=== PATIENT | female | born 1945 | race Caucasian/White ===

== ENCOUNTER 2018-04-27 09:55 | Day surgery (SDC) | payer OTHER, SELFPAY ==
--- NOTE | 2018-04-26 15:43 | W.PIPPEYE ---
History of Present Illness Chief Complaint: Progressive decreased vision, right eye Narrative: The patient is a 72-year old female with history of progressive decreased vision in both eyes, right eye worse than left. She notes significant difficulty with threading a needle, also when driving. On examination she was noted to have bilateral nuclear cortical and posterior subcapsular cataract with visual acuity of 20/80 right eye, 20/30 left eye. The option of cataract surgery was offered to the patient and she wished to proceed. NOTE: The Chief Complaint, HPI, Past Medical History, Past Surgical History, Family History, Social History, Medications, and complete Ophthalmic Exam with detailed Assessment and Plan have already been documented in the patient's outpatient ophthalmic record and are not covered again in detail here. PFSH Migraine with aura Polycystic kidney disease Polycystic liver disease RA (rheumatoid arthritis) Family History Mother Dementia Stroke Father Diabetes Essential hypertension Heart disease Sister Essential hypertension Heart disease Hyperlipidemia Neoplasm Grandfather No problems noted. Grandfather No problems noted. Grandmother No problems noted. Grandmother No problems noted. Sister Essential hypertension Son Essential hypertension Hyperlipidemia Daughter No problems noted. Abdominal hysterectomy Arthroplasty of knee (~09/2006) Biopsy of breast CYST ASPIRATION; LIVER (~06/2014) Cholecystectomy (08/12/14) Colonoscopy - MAC (05/01/16) LIVER RESECTION Oophrectomy, Both Repair, ACL Rotator Cuff Repair (~08/2008) Spinal Fusion Family History Mother Dementia Stroke Father Diabetes Essential hypertension Heart disease Sister Essential hypertension Heart disease Hyperlipidemia Neoplasm Grandfather No problems noted. Grandfather No problems noted. Grandmother No problems noted. Grandmother No problems noted. Sister Essential hypertension Son Essential hypertension Hyperlipidemia Daughter No problems noted. Medical History Migraine with aura Polycystic kidney disease Polycystic liver disease RA (rheumatoid arthritis) Social History Smoking/Tobacco Use Status: Never Surgical History Abdominal hysterectomy Arthroplasty of knee (~09/2006) Biopsy of breast CYST ASPIRATION; LIVER (~06/2014) Cholecystectomy (08/12/14) Colonoscopy - MAC (05/01/16) LIVER RESECTION Oophrectomy, Both Repair, ACL Rotator Cuff Repair (~08/2008) Spinal Fusion Social History Smoking/Tobacco Use Status: Never Meds Home Medications Medication Instructions Recorded Confirmed Type hydroxychloroquine [Plaquenil] 100 mg PO DAILY #90 tab-cap 10/29/12 04/22/18 History multivitamin 1 ea PO DAILY 10/29/12 04/22/18 History salsalate 500 mg PO DAILY 10/29/12 04/22/18 History cholecalciferol (vitamin D3) 1 tab PO DAILY 10/21/13 04/22/18 History [Vitamin D3] sumatriptan succinate [Imitrex] 100 mg PO STAT PRN #27 tab-cap 05/17/15 04/22/18 History ferrous sulfate [Feosol] 325 mg PO BID #60 cap 04/18/16 04/22/18 History adjuvant AS01B (PF), component 0.5 ml IM DAILY #0.5 ml 03/31/18 03/31/18 Rx vial 1 of 2 intramuscular suspension Allergies Allergy/AdvReac Type Severity Reaction Status Date / Time Sulfa (Sulfonamide Allergy Intermediate HIVES, Unverified 04/22/18 14:39 Antibiotics) nausea amoxicillin Allergy Mild SKIN RASH Unverified 04/22/18 14:39 erythromycin base Allergy Mild SKIN RASH Unverified 04/22/18 14:39 codeine AdvReac Severe itching, Unverified 04/22/18 14:39 nausea, hives celecoxib AdvReac Intermediate Nausea Unverified 04/22/18 14:39 fluorouracil [From Carac] AdvReac Intermediate Nausea Unverified 04/22/18 14:39 Penicillins AdvReac Intermediate skin rash, Unverified 04/22/18 14:39 itching Anti-E Allergy Severe Uncoded 04/22/18 14:39 Exam OCULAR EXAM:: Most recent ocular examination reveals corrected visual acuity of 20/80 right eye, 20/30 left eye. Intraocular pressure is 15 OD, 14 OS. Extraocular motility is normal. Pupils equal, round, and reactive without afferent pupillary defect Slit-lamp examination reveals 1+ hyperemia OU. Pupils dilate to 6 mm OU. 2+ nuclear/cortical with trace posterior subcapsular cataract is present OD. In the left eye there is a 1+ nuclear with 2+ cortical and trace posterior subcapsular cataract. Dilated funduscopic examination reveals disc cupping of 0.15 OD, 0.2 OS with good color. The retinal vasculature is normal. Mild pigmentary changes are present in both maculas. Peripheral retina and vitreous is normal OU. BRIGHTNESS ACUITY TESTING (BAT):: Brightness acuity testing of the right eye off is 20/80, low is 20/80, medium is 20/100, high is 20/400. Assessment and Plan (1) Posterior subcapsular age-related cataract, right eye: Current visit: No Status: Acute Assessment: Visually significant cataract, right eye. Plan: Cataract extraction with intraocular lens implantation, right eye (2) Nuclear sclerotic cataract of right eye: Current visit: No Status: Acute Assessment: Visually significant cataract, right eye. Plan: Cataract extraction with intraocular lens implantation, right eye (3) Cortical cataract of right eye: Current visit: No Status: Acute Assessment: Visually significant cataract, right eye. Plan: Cataract extraction with intraocular lens implantation, right eye Note: NOTE:: The details of the planned surgery, including the risks, indications,limitations,expectations,outcome and possible complications were explained to the patient. The patient understands the complications including, but not limited to: infection, hemorrhage, posterior dislocation of the lens or nuclear fragments which may require the intervention of a vitreoretinal surgeon, possible loss of the eye, or from anesthetic complications. The patient has been made aware of the option of not having surgery, that vision following surgery may not be equal to that prior to surgery, and that the planned surgery may not achieve the intended results. Following this discussion, which the patient appeared to understand, the patient wishes to proceed with cataract surgery with lens implantation of the affected eye to improve and maximize vision.
[2018-04-27 10:10] VITALS: BP 124/83; PULSE 72; RESP 16; TEMP 36.2; O2SAT 99
[2018-04-27] MEDS: Tropicam./Phenyleph. (1/2.5%) 5 ML BTL OD ×4 (10:22→11:34)
[2018-04-27] MEDS: Tetracaine 0.5% 4 ML BTL OD ×3 (10:22→10:32)
[2018-04-27] MEDS: Povidone-Iodine Ophth 30 ML BTL ×2 (11:28→11:56)
[2018-04-27] MEDS: Lidocaine 2% Jelly 6 ML SYR (11:34)
[2018-04-27] MEDS: Lidocaine 1% Pres-Free 5 ML VIAL (11:36)
[2018-04-27] MEDS: Balanced Salt Soln.-PLUS 500 ML BAG (11:38)
--- NOTE | 2018-04-27 12:06 | W.PM.DSUDISC ---
Discharge Plan Discharge Details Reason For Visit: CATARACT OD Attending Provider: Crispin Espana Primary Care Provider: Kenan Willett. Home Meds and New Rx's Prescriptions: No Action adjuvant AS01B (PF)vial 1 of 2 [Shingrix Adjuvant Component-PF] suspension 0.5 ml IM DAILY Qty: 0.5 RF: 1 salsalate 500 MG tablet 500 mg PO DAILY RF: 0 hydroxychloroquine [Plaquenil] 200 MG tablet 100 mg PO DAILY Qty: 90 RF: 4 multivitamin 1 EACH capsule 1 ea PO DAILY RF: 0 cholecalciferol (vitamin D3) [Vitamin D3] 2,000 UNIT capsule 1 tab PO DAILY RF: 0 sumatriptan succinate [Imitrex] 100 MG tablet 100 mg PO STAT PRNQty: 27 RF: 3 ferrous sulfate [Feosol] 325 MG tablet 325 mg PO BID Qty: 60 RF: 2 Discharge Instructions Stand Alone Forms: Post-op Topical Cataract, Shayy Greene (DSU) DS: Diagnosis Discharge Diagnosis (1) Posterior subcapsular age-related cataract, right eye: Status: Resolved (2) Nuclear sclerotic cataract of right eye: Status: Resolved (3) Cortical cataract of right eye: Status: Resolved (4) Status post cataract extraction and insertion of intraocular lens of right eye: Status: Chronic
--- NOTE | 2018-04-27 12:07 | W.PM.OP ---
Date of service: 04/27/18 Time of Service: 12:07 Operative Note DATE OF PROCEDURE: 04/27/18 PRE-OP DIAGNOSIS: Cataract, right eye POST-OP DIAGNOSIS: same SURGEON: Crispin Espana ANESTHESIA: MAC and local (sub-tenon's anesthetic infiltration) PATHOLOGY: none sent COMPLICATIONS: None Patient was transported to: same day Patient's condition: stable Implants: [place] [employer] [place] Vision / [employer] Tecnis [id number] Indications: Progressive decreased vision due to cataract, right eye Procedure Description: CATARACT SURGERY OPERATIVE REPORT PREOPERATIVE DIAGNOSIS: Nuclear/cortical/posterior subcapsular cataract, right eye POSTOPERATIVE DIAGNOSIS: Same OPERATION: Cataract extraction using phacoemulsification with posterior chamber intraocular lens implant, right eye. IOL: IOL [employer] Consultant/Model: J&J Vision / MEDINA Tecnis ZCB00 IOL Power: + 20.0 diopters IOL Serial Number: [id number] Optic Diameter: 6.0mm Haptic/Overall Diameter: 13.0mm PHACO INFO: Jesse Agilvaxon Vision System with OZil and Active Fluidics Cumulative Dispersed Energy (CDE): 7.76 seconds SURGEON: Crispin Espana MD, MISAEL ANESTHESIA: Monitored Anesthesia Care (MAC), with local sub-tenon's anesthetic infiltration COMPLICATIONS: None SPECIMENS: None INDICATIONS FOR PROCEDURE: The patient is a 72-year old lady with history of progressive decreased vision in her right eye. She is noted to have a significant nuclear cortical and posterior subcapsular cataract of the right eye with visual acuity of 20/80. The option of cataract surgery was offered to the patient and she wished to proceed. PROCEDURE: The correct surgical eye was identified and marked as the right eye and the pupil was dilated in the preoperative area using mydriatics and cycloplegics. The dilated pupil size was 7.0 mm. Oral sedation was administered in the form of an Imprimis MKO Melt (midazolam 3mg/ketamine 25mg/ondansetron 2mg). The patient was brought to the operating room where cardiopulmonary monitoring was instituted and surgical time-out was performed, confirming the correct operative eye and IOL power. Topical anesthesia was administered and ophthalmic povidone-iodine 5% was instilled into the conjunctival fornices. Lidocaine gel was applied to the cornea and the thaddeus-ocular area was prepped with Betadine 10% solution and draped in the usual sterile fashion for intraocular surgery, including an aperture drape. A Tegaderm transparent film dressing was cut in half and used to cover the lashes and lid margins. Care was taken to sequester the lashes and lid margins under the Tegaderm dressing. A lid speculum was placed between the lids of the operative eye and the Jamison-Kayy operating microscope was maneuvered into position. Adán scissors were then used to make a conjunctival buttonhole approximately 6mm posterior to the limbus in the inferonasal quadrant. Blunt dissection was carried out to expose bare sclera, and a blunt-tipped sub-tenon?s anesthesia cannula was introduced and passed posteriorly along the globe where non-preserved plain lidocaine was injected into posterior sub-Tenon?s space. A sideport knife was used to make a paracentesis port inferotemporaally, and the anterior chamber was filled with Healon GV. A 2.4mm keratome knife was used to create a half-thickness groove at the limbus and then to construct a three-plane near-clear corneal tunnel extending 2.0mm into clear cornea in the temporal/superiortemporal position. . A flap was raised on the anterior capsule and capsulorhexis forceps were used to complete a continuous curvilinear capsulorhexis of 5.5 mm. Balanced salt solution was then used to perform cortical cleaving hydrodissection and nuclear hydrodelineation until the lens could be freely rotated within the capsular bag. The lens nucleus was then disassembled and removed within the capsular bag and iris plane using phacoemulsification. Residual cortical material was removed using the 45-degree angled silicone I/A tip with 0.3mm port. The posterior capsule was carefully polished to remove as much residual lens epithelial cells as safely possible. The capsular bag was then inflated and the anterior chamber deepened with viscoelastic. The lens implant described above was inserted into the capsular bag using the MEDINA [place] Injector. A Kuglen hook was used to dial the IOL into position. Residual viscoelastic was then removed first from posterior to the IOL, then from the anterior chamber using the I/A handpiece. The lens implant was noted to center nicely within the capsular bag. The incisions were stromally hydrated, and the anterior chamber was reformed using BSS. Then 0.4cc of moxifloxacin 1.5mg/ml were injected into the capsular bag and anterior chamber. The incisions were checked with a Weck spear and found to be secure. Several drops of ophthalmic povidone-iodine 5% were then applied to the eye followed by two drops of Imprimis combination moxifloxacin/dexamethasone solution. The drapes were removed and a clear plastic protective eye shield was placed over the eye. The patient was then returned to Same Day Surgery in stable condition.
--- NOTE | 2018-04-27 12:10 | ROE_ITS ---
Date of service: 04/27/18 Time of Service: 12:07 Operative Note DATE OF PROCEDURE: 04/27/18 PRE-OP DIAGNOSIS: Cataract, right eye POST-OP DIAGNOSIS: same SURGEON: Crispin Espana ANESTHESIA: MAC and local (sub-tenon's anesthetic infiltration) PATHOLOGY: none sent COMPLICATIONS: None Patient was transported to: same day Patient's condition: stable Implants: [place] and [place] Vision / [employer] Tecnis [id number] Indications: Progressive decreased vision due to cataract, right eye Procedure Description: CATARACT SURGERY OPERATIVE REPORT PREOPERATIVE DIAGNOSIS: Nuclear/cortical/posterior subcapsular cataract, right eye POSTOPERATIVE DIAGNOSIS: Same OPERATION: Cataract extraction using phacoemulsification with posterior chamber intraocular lens implant, right eye. IOL: IOL [employer] Locomotive/Model: J&J Vision / MEDINA Tecnis ZCB00 IOL Power: + 20.0 diopters IOL Serial Number: [id number] Optic Diameter: 6.0mm Haptic/Overall Diameter: 13.0mm PHACO INFO: Jesse OptiMine Softwareon Vision System with OZil and Active Fluidics Cumulative Dispersed Energy (CDE): 7.76 seconds SURGEON: Crispin Espana MD, MISAEL ANESTHESIA: Monitored Anesthesia Care (MAC), with local sub-tenon's anesthetic infiltration COMPLICATIONS: None SPECIMENS: None INDICATIONS FOR PROCEDURE: The patient is a 72-year old lady with history of progressive decreased vision in her right eye. She is noted to have a significant nuclear cortical and posterior subcapsular cataract of the right eye with visual acuity of 20/80. The option of cataract surgery was offered to the patient and she wished to proceed. PROCEDURE: The correct surgical eye was identified and marked as the right eye and the pupil was dilated in the preoperative area using mydriatics and cycloplegics. The dilated pupil size was 7.0 mm. Oral sedation was administered in the form of an Imprimis MKO Melt (midazolam 3mg/ketamine 25mg/ ondansetron 2mg). The patient was brought to the operating room where cardiopulmonary monitoring was instituted and surgical time-out was performed, confirming the correct operative eye and IOL power. Topical anesthesia was administered and ophthalmic povidone-iodine 5% was instilled into the conjunctival fornices. Lidocaine gel was applied to the cornea and the thaddeus-ocular area was prepped with Betadine 10% solution and draped in the usual sterile fashion for intraocular surgery, including an aperture drape. A Tegaderm transparent film dressing was cut in half and used to cover the lashes and lid margins. Care was taken to sequester the lashes and lid margins under the Tegaderm dressing. A lid speculum was placed between the lids of the operative eye and the Jamison-Kayy operating microscope was maneuvered into position. Adán scissors were then used to make a conjunctival buttonhole approximately 6mm posterior to the limbus in the inferonasal quadrant. Blunt dissection was carried out to expose bare sclera, and a blunt-tipped sub-tenon? s anesthesia cannula was introduced and passed posteriorly along the globe where non-preserved plain lidocaine was injected into posterior sub-Tenon?s space. A sideport knife was used to make a paracentesis port inferotemporaally, and the anterior chamber was filled with Healon GV. A 2.4mm keratome knife was used to create a half-thickness groove at the limbus and then to construct a three-plane near-clear corneal tunnel extending 2.0mm into clear cornea in the temporal/superiortemporal position. . A flap was raised on the anterior capsule and capsulorhexis forceps were used to complete a continuous curvilinear capsulorhexis of 5.5 mm. Balanced salt solution was then used to perform cortical cleaving hydrodissection and nuclear hydrodelineation until the lens could be freely rotated within the capsular bag. The lens nucleus was then disassembled and removed within the capsular bag and iris plane using phacoemulsification. Residual cortical material was removed using the 45-degree angled silicone I/A tip with 0.3mm port. The posterior capsule was carefully polished to remove as much residual lens epithelial cells as safely possible. The capsular bag was then inflated and the anterior chamber deepened with viscoelastic. The lens implant described above was inserted into the capsular bag using the MEDINA [place] Injector. A Kuglen hook was used to dial the IOL into position. Residual viscoelastic was then removed first from posterior to the IOL, then from the anterior chamber using the I/A handpiece. The lens implant was noted to center nicely within the capsular bag. The incisions were stromally hydrated , and the anterior chamber was reformed using BSS. Then 0.4cc of moxifloxacin 1.5mg/ml were injected into the capsular bag and anterior chamber. The incisions were checked with a Weck spear and found to be secure. Several drops of ophthalmic povidone-iodine 5% were then applied to the eye followed by two drops of Imprimis combination moxifloxacin/dexamethasone solution. The drapes were removed and a clear plastic protective eye shield was placed over the eye. The patient was then returned to Same Day Surgery in stable condition.
[2018-04-27 12:21] VITALS: BP 113/71; PULSE 63; RESP 18; TEMP 37.2; O2SAT 94
== END 2018-04-27 12:35 | disposition home or self-care (01) ==
LOC: SUR 09:55
PROVIDERS: PCP Family Medicine; Visit Provider Ophthalmology
PROC: (CPT 66984; principal; 2018-04-27 12:15)
DX: H25.811 Combined forms of age-related cataract, right eye (principal)
CPT/HCPCS: 66984; V2632

== ENCOUNTER 2018-06-29 06:54 | Day surgery (SDC) | payer OTHER, SELFPAY ==
--- NOTE | 2018-06-28 17:38 | POEE_ITS ---
History of Present Illness Chief Complaint: Progressive decreased vision, left eye Narrative: Patient is a 72-year-old lady with history of progressive decreased vision in both eyes at both distance and near. She was noted to have significant bilateral nuclear cortical and posterior subcapsular cataracts, right eye greater than left. She underwent cataract surgery in the right eye on 04/27/2018. Postoperatively, she has regained uncorrected visual acuity of 20/20 in the right eye. She now presents for cataract surgery in the left eye. NOTE: The Chief Complaint, HPI, Past Medical History, Past Surgical History, Family History, Social History, Medications, and complete Ophthalmic Exam with detailed Assessment and Plan have already been documented in the patient's outpatient ophthalmic record and are not covered again in detail here. [facility] Medical History Cortical cataract of left eye (Acute) Nuclear sclerotic cataract of left eye (Acute) Posterior subcapsular age-related cataract of left eye (Acute) Migraine with aura Polycystic kidney disease Polycystic liver disease RA (rheumatoid arthritis) Surgical History Status post cataract extraction and insertion of intraocular lens of right eye (Chronic 04/27/18) Abdominal hysterectomy Arthroplasty of knee (~09/2006) Biopsy of breast CYST ASPIRATION; LIVER (~06/2014) Cholecystectomy (08/12/14) Colonoscopy - MAC (05/01/16) LIVER RESECTION Oophrectomy, Both Repair, ACL Rotator Cuff Repair (~08/2008) Spinal Fusion Family History Mother Dementia Stroke Father Diabetes Essential hypertension Heart disease Sister Essential hypertension Heart disease Hyperlipidemia Neoplasm Grandfather No problems noted. Grandfather No problems noted. Grandmother No problems noted. Grandmother No problems noted. Sister Essential hypertension Son Essential hypertension Hyperlipidemia Daughter No problems noted. Social History Smoking and Tabacco status: Never Meds Home Medications Medication Instructions Recorded Confirmed Type hydroxychloroquine [Plaquenil] 100 mg PO DAILY #90 tab-cap 10/29/12 06/24/18 History multivitamin 1 ea PO DAILY 10/29/12 06/24/18 History salsalate 500 mg PO DAILY 10/29/12 06/24/18 History cholecalciferol (vitamin D3) 1 tab PO DAILY 10/21/13 06/24/18 History [Vitamin D3] sumatriptan succinate [Imitrex] 100 mg PO STAT PRN #27 tab-cap 05/17/15 06/24/18 History ferrous sulfate [Feosol] 325 mg PO BID #60 cap 04/18/16 06/24/18 History adjuvant AS01B (PF), component 0.5 ml IM DAILY #0.5 ml 03/31/18 06/24/18 Rx vial 1 of 2 intramuscular suspension Allergies Allergy/AdvReac Type Severity Reaction Status Date / Time Sulfa (Sulfonamide Allergy Intermediate HIVES, Unverified 06/10/18 12:59 Antibiotics) nausea amoxicillin Allergy Mild SKIN RASH Unverified 06/10/18 12:59 erythromycin base Allergy Mild SKIN RASH Unverified 06/10/18 12:59 codeine AdvReac Severe itching, Unverified 06/10/18 12:59 nausea, hives celecoxib AdvReac Intermediate Nausea Unverified 06/10/18 12:59 fluorouracil [From Carac] AdvReac Intermediate Nausea Unverified 06/10/18 12:59 Penicillins AdvReac Intermediate skin rash, Unverified 06/10/18 12:59 itching Anti-E Allergy Severe Uncoded 06/10/18 12:59 Exam OCULAR EXAM:: Most recent ocular examination reveals uncorrected vision of 20/20 OD, corrected visual acuity is 20/30 OS. Intraocular pressure is 15 OD, 14 OS. Pupils equal, round, and reactive without afferent pupillary defect extraocular motility is normal. Slit-lamp examination is significant for pupils dilating to 6 mm OU. Well-positioned PCIOL OD with clear posterior capsule. 1+ nuclear with 2+ cortical and trace posterior subcapsular cataract is present OS. Dilated funduscopic examination shows disc cupping of 0.15 OD, 0.2 OS with normal vessels. There is some mild pigmentary changes in both maculas. Peripheral retina and vitreous is normal OU. BRIGHTNESS ACUITY TESTING (BAT):: Brightness acuity testing of the left eye off is 20/30. Low is 20/40. Medium is 20/50. High is 20/60. Assessment and Plan (1) Posterior subcapsular age-related cataract of left eye: Current visit: No Status: Acute Assessment: Visually significant cataract, left eye. Plan: Cataract extraction with intraocular lens implantation, left eye (2) Nuclear sclerotic cataract of left eye: Current visit: No Status: Acute Assessment: Visually significant cataract, left eye. Plan: Cataract extraction with intraocular lens implantation, left eye (3) Cortical cataract of left eye: Current visit: No Status: Acute Assessment: Visually significant cataract, left eye. Plan: Cataract extraction with intraocular lens implantation, left eye Note: NOTE:: The details of the planned surgery, including the risks, indicati ons,limitations,expectations,outcome and possible complications were explained to the patient. The patient understands the complications including, but not limited to: infection, hemorrhage, posterior dislocation of the lens or nuclear fragments which may require the intervention of a vitreoretinal surgeon, possible loss of the eye, or from anesthetic complications. The patient has been made aware of the option of not having surgery, that vision following surgery may not be equal to that prior to surgery, and that the planned surgery may not achieve the intended results. Following this discussion, which the patient appeared to understand, the patient wishes to proceed with cataract surgery with lens implantation of the affected eye to improve and maximize vision.
[2018-06-29 07:12] VITALS: BP 118/69; PULSE 79; RESP 16; TEMP 35.8; O2SAT 98
[2018-06-29] MEDS: Tropicam./Phenyleph. (1/2.5%) 5 ML BTL OS ×3 (07:22→07:32)
[2018-06-29] MEDS: Tetracaine 0.5% 4 ML BTL OS ×4 (07:23→08:31)
[2018-06-29] MEDS: Lidocaine 2% Jelly 6 ML SYR (08:31)
[2018-06-29] MEDS: Povidone-Iodine Ophth 30 ML BTL ×2 (08:31→08:54)
[2018-06-29] MEDS: Balanced Salt Soln.-PLUS 500 ML BAG (08:38)
[2018-06-29] MEDS: Lidocaine 1% Pres-Free 5 ML VIAL (08:38)
--- NOTE | 2018-06-29 09:00 | W.PM.DSUDISC ---
Discharge Plan Discharge Details Attending Provider: Crispin Espana Primary Care Provider: Kenan Willett. Home Meds and New Rx's Prescriptions: No Action salsalate 500 MG tablet 500 mg PO DAILY RF: 0 hydroxychloroquine [Plaquenil] 200 MG tablet 100 mg PO DAILY Qty: 90 RF: 4 multivitamin 1 EACH capsule 1 ea PO DAILY RF: 0 cholecalciferol (vitamin D3) [Vitamin D3] 2,000 UNIT capsule 1 tab PO DAILY RF: 0 sumatriptan succinate [Imitrex] 100 MG tablet 100 mg PO STAT PRNQty: 27 RF: 3 ferrous sulfate [Feosol] 325 MG tablet 325 mg PO BID Qty: 60 RF: 2 Shingrix Adjuvant Component-PF suspension 0.5 ml IM RF: 0 Discharge Instructions Stand Alone Forms: Post-op Topical Cataract, Press Ganey (DSU) DS: Diagnosis Discharge Diagnosis (1) Status post cataract extraction and insertion of intraocular lens of left eye: Status: Chronic
--- NOTE | 2018-06-29 09:03 | ROE_ITS ---
Date of service: 06/29/18 Time of Service: 09:01 Operative Note PRE-OP DIAGNOSIS: Cataract, left eye POST-OP DIAGNOSIS: same PROCEDURE: Cataract extraction using phacoemulsification with intraocular lens implant, left eye SURGEON: Crispin Espana ANESTHESIA: MAC and local (sub-tenon's anesthetic infiltration) PATHOLOGY: none sent COMPLICATIONS: None Patient was transported to: same day Patient's condition: stable Implants: [place] [employer] [place] [employer] / [employer] Tecnis [id number] Indications: Progressive decreased vision due to cataract, left eye Procedure Description: CATARACT SURGERY OPERATIVE REPORT PREOPERATIVE DIAGNOSIS: Nuclear/cortical/posterior subcapsular cataract, left eye POSTOPERATIVE DIAGNOSIS: Same OPERATION: Cataract extraction using phacoemulsification with posterior chamber intraocular lens implant, left eye. IOL: IOL Merchant Mariner/Model: [employer] / MEDINA Tecnis ZCB00 IOL Power: + 21.0 diopters IOL Serial Number: [id number] Optic Diameter: 6.0mm Haptic/Overall Diameter: 13.0mm PHACO INFO: [employer] Vision System with OZil and [employer]ics Cumulative Dispersed Energy (CDE): 10.72 seconds SURGEON: Crispin Espana MD, MISAEL ANESTHESIA: Monitored Anesthesia Care (MAC), with local sub-tenon's anesthetic infiltration COMPLICATIONS: None SPECIMENS: None INDICATIONS FOR PROCEDURE: The patient is a 72-year-old lady with history of diminished visual acuity in both eyes secondary to the development of bilateral nuclear cortical and posterior subcapsular cataract. She has already undergone cataract surgery in her right eye and is doing well postoperatively. She now presents for cataract surgery in the left eye. PROCEDURE: The correct surgical eye was identified and marked as the left eye and the pupil was dilated in the preoperative area using mydriatics and cycloplegics. The dilated pupil size was 7.0 mm. Oral sedation was administered in the form of an Imprimis MKO Melt (midazolam 3mg/ketamine 25mg/ondansetron 2mg). The patient was brought to the operating room where cardiopulmonary monitoring was instituted and surgical time-out was performed, confirming the correct operative eye and IOL power. Topical anesthesia was administered and ophthalmic povidone-iodine 5% was instilled into the conjunctival fornices. Lidocaine gel was applied to the cornea and the thaddeus-ocular area was prepped with Betadine 10% solution and draped in the usual sterile fashion for intraocular surgery, including an aperture drape. A Tegaderm transparent film dressing was cut in half and used to cover the lashes and lid margins. Care was taken to sequester the lashes and lid margins under the Tegaderm dressing. A lid speculum was placed between the lids of the operative eye and the Jamison-Kayy operating microscope was maneuvered into position. Adán scissors were then used to make a conjunctival buttonhole approximately 6mm posterior to the limbus in the inferonasal quadrant. Blunt dissection was carried out to expose bare sclera, and a blunt-tipped sub-tenon?s anesthesia cannula was introduced and passed posteriorly along the globe where non- preserved plain lidocaine was injected into posterior sub-Tenon?s space. A sideport knife was used to make a paracentesis port superior/superiortemporal, and the anterior chamber was filled with Healon GV. A 2.4mm keratome knife was used to create a half-thickness groove at the limbus and then to construct a three-plane near-clear corneal tunnel extending 2.0mm into clear cornea in the temporal position. . A flap was raised on the anterior capsule and capsulorhexis forceps were used to complete a continuous curvilinear capsulorhexis of 5.5 mm. Balanced salt solution was then used to perform cortical cleaving hydrodissection and nuclear hydrodelineation until the lens could be freely rotated within the capsular bag. The lens nucleus was then disassembled and removed within the capsular bag and iris plane using phacoemulsification. Residual cortical material was removed using the 45-degree angled silicone I/A tip with 0.3mm port. The posterior capsule was carefully polished to remove as much residual lens epithelial cells as safely possible. There was a small amount of residual central posterior subcapsular plaque which could not be safely removed. The capsular bag was then inflated and the anterior chamber deepened with viscoelastic. The lens implant described above was inserted into the capsular bag using the MEDINA [place] Injector. A Kuglen hook was used to dial the IOL into position. Residual viscoelastic was then removed first from posterior to the IOL, then from the anterior chamber using the I/A handpiece. The lens implant was noted to center nicely within the capsular bag. The incisions were stromally hydrated, and the anterior chamber was reformed using BSS. Then 0.4cc of moxifloxacin 1.5mg/ml were injected into the capsular bag and anterior chamber. The incisions were checked with a Weck spear and found to be secure. Several drops of ophthalmic povidone-iodine 5% were then applied to the eye followed by two drops of Imprimis combination moxifloxacin/dexamethasone solution. The drapes were removed and a clear plastic protective eye shield was placed over the eye. The patient was then returned to Same Day Surgery in stable condition.
[2018-06-29 09:30] VITALS: BP 105/70; PULSE 65; RESP 16; TEMP 36; O2SAT 97
== END 2018-06-29 09:40 | disposition home or self-care (01) ==
LOC: SUR 06:54
PROVIDERS: PCP Family Medicine; Visit Provider Ophthalmology
PROC: (CPT 66984; principal; 2018-06-29 08:30)
DX: H25.812 Combined forms of age-related cataract, left eye (principal); Z98.41 Cataract extraction status, right eye; Z96.1 Presence of intraocular lens
CPT/HCPCS: 66984; V2632

== ENCOUNTER 2018-09-11 10:34 | Outpatient (CLI) | payer OTHER, SELFPAY ==
[2018-09-11 11:14] LABS: Absolute Basophil Count 0.01 k/cumm (0.0-0.2); Absolute Eosinophil Count 0.11 k/cumm (0.0-0.7); Absolute Neutrophil Count 1.29 k/cumm (1.2-6.7); Basophils % 0.4; Eosinophils % 4.4; HCT 41.2 % (36.0-46.0); HGB 13.3 g/dL (12.0-15.5); Lymphocytes % 27.9; Mean Corp. HGB Concentration 32.3 g/dL (32.0-36.0); Mean Corpuscular Hemoglobin 30.4 pg (27.0-33.0); Mean Corpuscular Volume 94.1 fL (80-95); Mean Platelet Volume 10.3 fL (8.0-11.0); Monocytes % 15.9; Neutrophils % 51.4; Platelet Count 188 x1000/uL (130-400); RBC 4.38 m/cumm (4.00-5.20); RBC Distribution Width 12.6 % (11.7-14.6); White Blood Cell Count 2.51 k/cumm (4.4-10.8)
[2018-09-11 12:03] LABS: ESR 10 MM/HR (0-30)
[2018-09-11 12:05] LABS: ALT 32 U/L (12-78); AST 23 U/L (15-37); Albumin 3.8 g/dL (3.4-5.0); Alkaline Phosphatase 61 U/L (46-116); CREATININE 0.71 mg/dL (0.55-1.02)
== END 2018-09-11 10:54 ==
PROVIDERS: PCP Family Medicine; Visit Provider Internal Medicine Rheumatology
DX: M06.9 Rheumatoid arthritis, unspecified (principal); Z79.899 Other long term (current) drug therapy
CPT/HCPCS: 36415; 85652; 82040; 82565; 84075; 84450; 84460; 85025

== ENCOUNTER 2018-11-24 10:07 | Outpatient (CLI) | payer OTHER, SELFPAY ==
[2018-11-24 13:02] LABS: Iron 101 ug/dL (50-175)
[2018-11-24 13:16] LABS: Ferritin 184 ng/mL (8-388)
[2018-11-24 13:50] LABS: ESR 6 MM/HR (0-30)
== END 2018-11-24 10:27 ==
PROVIDERS: PCP Family Medicine; Visit Provider Family Medicine
DX: E61.1 Iron deficiency (principal); R51 Headache
CPT/HCPCS: 36415; 85652; 82728; 83540

== ENCOUNTER 2019-01-12 01:10 | Outpatient (CLI) | payer OTHER, SELFPAY ==
--- NOTE | 2019-01-12 08:47 | DI.COMBO_ITS ---
SYMPTOM/DIAGNOSIS: RT BREAST LUMP, N63.10 MAMMOGRAMS AND RIGHT BREAST ULTRASOUND: Mammograms were interpreted according to the usual protocol including computer analysis with CAD system, tomosynthesis and C view imaging. A palpable abnormality is noted in the lateral right breast. Comparison is made with mammograms from [id number]. A marker was placed in the area of the palpable abnormality. The breasts are composed of heterogeneously dense fibroglandular tissue. Breast density, Category C. Beneath the area marked, there is a lobular mass, not seen on the previous exams measuring 11 mm. No associated calcifications are seen. Spot compression views were performed of this area confirming persistence of the new mass. Right breast ultrasound shows an irregular, lobulated, hypoechoic mass measuring 1.3 by 0.9 by 1.2 cm. located in the 9 o'clock position 4 cm. from the nipple. This corresponds to the palpable abnormality. IMPRESSION: Category 4, mammogram and ultrasound findings are suspicious for cancer. Biopsy is recommended. The findings and recommendations were discussed with the patient after the exam. Suzie Robin was also given the results. SA ASSESSMENT OF FINDINGS: Suspicious. Biopsy should be considered. Category 4. Patient will receive a letter notifying them of these results. Bi-RADS category C. The breasts are heterogeneously dense, which may obscure small masses.
== END 2019-01-12 01:30 ==
PROVIDERS: PCP Family Medicine
DX: N63.11 Unspecified lump in the right breast, upper outer quadrant (principal); R92.8 Other abnormal and inconclusive findings on diagnostic imaging of breast
CPT/HCPCS: 76642; 77062; 77066; G0279

== ENCOUNTER 2019-01-20 13:30 | Outpatient (CLI) | payer OTHER, SELFPAY ==
--- NOTE | 2019-01-20 10:05 | DI.RAD_ITS ---
SYMPTOMS/DIAGNOSIS: HARD MASS IN LT AC JOINT REGION, M25.512, LT SHOULDER PAIN LEFT SHOULDER: There is spurring of the AC joint. There is soft tissue prominence at the superior aspect of the AC joint which could represent fluid in the AC joint. There are no bony erosions. The glenohumeral joint space is well maintained. There is some spurring at the glenoid. The humeral head is normally positioned. No tendon or joint space calcifications are seen. IMPRESSION: Degenerative changes of the AC joint.
== END 2019-01-20 13:50 ==
PROVIDERS: PCP Family Medicine; Visit Provider Family Medicine
DX: M25.512 Pain in left shoulder (principal); M19.012 Primary osteoarthritis, left shoulder; M79.89 Other specified soft tissue disorders
CPT/HCPCS: 73030

== ENCOUNTER 2019-01-20 17:00 | Outpatient (REF) | payer OTHER, SELFPAY ==
--- NOTE | 2019-01-20 15:30 | BREAST_PTH ---
PATIENT: Kelly Liu LOC: [facility] U#:[id number] AGE/SX: 73/F ROOM: RE01/20/[address]: Elmira Reid : 1945 BED: DIS: 01/20/2019 SPEC #: [id number] RECD: 01/20/19 17:19 STATUS: NATHAN REJordy #: [id number] ALY: 01/20/19 15:[address]: Elmira Reid DEPT: Surgical Specimen RECD BY: Ladi Sheldon ENTERED: 01/20/19 17:20 SP TYPE: Breast OTHR DR: Kenan Willett MD Tissues: 1 - BREAST BX NEEDLE Procedures: GROSS AND MICRO LEVEL 4 HERCEPTEST ESTROGEN/PROGESTERONE RECEPTOR IPEX STAIN Comments: [id number]
== END 2019-01-20 17:20 ==
LOC: LBN 17:00
PROVIDERS: PCP Family Medicine; Visit Provider Surgery
DX: C50.411 Malignant neoplasm of upper-outer quadrant of right female breast (principal); Z17.0 Estrogen receptor positive status [ER+]
CPT/HCPCS: 88305; 88307; 88360

== ENCOUNTER 2019-01-27 10:16 | Outpatient (CLI) | payer OTHER, SELFPAY ==
--- NOTE | 2019-01-27 10:30 | DI.RAD_ITS ---
SYMPTOM/DIAGNOSIS: BREAST CA, G50.919 PA CHEST AND FLAT AND UPRIGHT ABDOMEN: Comparison is made with chest xray dated 12/25/15. The heart size is normal. The lungs are well inflated and clear. No infiltrate, effusion, mass or adenopathy is seen. No free air is seen beneath the diaphragm. The patient is status post cholecystectomy. There is increased stool seen in the colon. There is no abnormal bowel dilatation. There are post surgical and degenerative changes of the spine. IMPRESSION: No acute abnormality.
[2019-01-27 10:35] LABS: Abs Immature Grans 0.01 k/cumm (0.0-0.09); Absolute Basophil Count 0.02 k/cumm (0.0-0.2); Absolute Eosinophil Count 0.05 k/cumm (0.0-0.7); Absolute Lymphocyte Count 0.69 k/cumm (1.2-3.4); Absolute Monocyte Count 0.33 k/cumm (0.11-0.7); Absolute Neutrophil Count 1.76 k/cumm (1.2-6.7); Basophils % 0.7; Eosinophils % 1.7; HCT 42.1 % (36.0-46.0); HGB 13.7 g/dL (12.0-15.5); Immature Grans % 0.3; Lymphocytes % 24.1; Mean Corp. HGB Concentration 32.5 g/dL (32.0-36.0); Mean Corpuscular Hemoglobin 30.9 pg (27.0-33.0); Mean Corpuscular Volume 94.8 fL (80-95); Mean Platelet Volume 9.8 fL (8.0-11.0); Monocytes % 11.5; Neutrophils % 61.7; Platelet Count 175 x1000/uL (130-400); RBC 4.44 m/cumm (4.00-5.20); RBC Distribution Width 12.9 % (11.7-14.6); White Blood Cell Count 2.86 k/cumm (4.4-10.8)
[2019-01-27 11:23] LABS: ALT 32 U/L (14-59); AST 20 U/L (15-37); Albumin 3.9 g/dL (3.4-5.0); Alkaline Phosphatase 63 U/L (46-116); Anion Gap 8.8 mmol/L (3-11); BUN 17 mg/dL (7-18); Bilirubin, Total 0.4 mg/dL (0.2-1.0); CO2 28.2 mmol/L (21.0-32.0); Calcium 8.5 mg/dL (8.5-10.1); Chloride 108 mmol/L (98-107); Glucose 75 mg/dL (70-100); Potassium 4.2 mmol/L (3.5-5.1); Sodium 145 mmol/L (136-145); Total Protein 6.4 g/dL (6.4-8.2)
== END 2019-01-27 10:36 ==
PROVIDERS: PCP Family Medicine; Visit Provider Surgery
DX: C50.911 Malignant neoplasm of unspecified site of right female breast (principal); Z90.49 Acquired absence of other specified parts of digestive tract; K59.00 Constipation, unspecified
CPT/HCPCS: 36415; 80053; 74022; 85025

== ENCOUNTER 2019-03-08 06:57 | Day surgery (SDC) | payer OTHER, SELFPAY ==
[2019-03-08] VITALS (7 sets, daily range): BP systolic 100–130; BP diastolic 49–73; PULSE 62–77; RESP 12–17; TEMP 36.1–36.6; O2SAT 97–100
--- NOTE | 2019-03-08 07:15 | DI.NM_ITS ---
EXAM: NM SENTNODE INJ ONLY CLINICAL HISTORY: right breast cancer,c50.919. COMPARISON: No exams were available for comparison EXAMINATION:: A Ruthven node injection of the right breast was carried out with 1.0 millicurie of T echnetium 99 M Sulfur Colloid.
[2019-03-08] MEDS: diphenhydrAMINE 50 MG/ML VIAL IVP (08:22)
[2019-03-08] MEDS: Acetaminophen 500 MG TAB 1000 MG PO (08:23)
[2019-03-08] MEDS: Gabapentin 300 MG CAP PO (08:24)
[2019-03-08] MEDS: Lactated Ringers 1,000 ML 125 ML IV ×2 (08:28→12:20)
[2019-03-08] MEDS: CLINDAMYCIN 600 MG/50 ML BAG 100 MG IVPB (09:59)
--- NOTE | 2019-03-08 10:52 | BREAST_PTH ---
PATIENT: Kelly Liu LOC: [facility] U#:[id number] AGE/SX: 73/F ROOM: RE03/08/[address]: Elmira Reid : 1945 BED: DIS: 03/08/2019 SPEC #: [id number] RECD: 03/09/19 12:47 STATUS: NATHAN REQ #: [id number] ALY: 03/08/19 10:[address]: Elmira Reid DEPT: Surgical Specimen RECD BY: Ladi Sheldon ENTERED: 03/09/19 12:50 SP TYPE: Breast OTHR DR: Kenan Willett MD Tissues: 1 - BREAST INCISION/EXCISION 2 - BREAST INCISION/EXCISION 3 - BREAST INCISION/EXCISION 4 - BREAST INCISION/EXCISION 5 - BREAST INCISION/EXCISION 6 - BREAST INCISION/EXCISION Procedures: GROSS AND MICRO LEVEL 5 Comments: [id number] (ALL SPECIMENS RADIOACTIVE)
[2019-03-08] MEDS: fentaNYL 100 MCG/2 ML VIAL IVP ×2 (12:35→12:50)
--- NOTE | 2019-03-08 12:42 | W.PM.OP ---
Date of service: 03/08/19 Time of Service: 12:42 Operative Note Operative Note DATE OF PROCEDURE: 03/08/19 PRE-OP DIAGNOSIS: R IDC POST-OP DIAGNOSIS: same PROCEDURE: lumpectomy sentinel node 1200 at breast 200 at S. node SURGEON: Elmira Reid ANESTHESIA: GETA ESTIMATED BLOOD LOSS: 10 PATHOLOGY: other Patient was transported to: PACU Patient's condition: stable Procedure Description: dictated
--- NOTE | 2019-03-08 13:20 | W.PM.DSUDISC ---
Discharge Plan Disposition Patient Disposition: HOME Condition: Good Discharge Details Reason For Visit: breast cancer Attending Provider: Elmira Reid Primary Care Provider: Kenan Willett Home Meds and New Rx's Prescriptions: New tramadol 50 mg tablet 50 mg PO Q6H PRN (Reason: pain) Qty: 14 RF: 0 Continued Shingrix Adjuvant Component-PF suspension 0.5 ml IM DAILY Qty: 0.5 RF: 0 salsalate 500 MG tablet 500 mg PO DAILY RF: 0 hydroxychloroquine [Plaquenil] 200 MG tablet 100 mg PO DAILY Qty: 90 RF: 4 multivitamin 1 EACH capsule 1 ea PO DAILY RF: 0 cholecalciferol (vitamin D3) [Vitamin D3] 2,000 UNIT capsule 1 tab PO DAILY RF: 0 sumatriptan succinate [Imitrex] 100 MG tablet 100 mg PO STAT PRNQty: 27 RF: 3 ferrous sulfate [Feosol] 325 mg (65 mg iron) tablet 325 mg PO DAILY Qty: 60 RF: 2 alprazolam 0.5 mg tablet 0.25 - 0.5 mg PO QHS PRN (Reason: sleep) Qty: 20 RF: 0 Discharge Instructions Additional Instructions: Keep an ice bag on the incision. 20 minutes on and 20 minutes off. Ice keeps the swelling down and swelling causes pain. Make sure you wrap the ice pack in a towel and don't apply directly to the skin. -No driving x 72 hrs or of you are taking narcotic pain medications. -Do Not remove any steri tapes (white tapes) that cover the incision. If you have steri-tapes on your incision, do not use antibacterial ointment. -Follow-up with Dr. Reid next Friday. -no straining to move bowels -pain meds are very constipating: if you do not move your bowels daily take a dose of OTC milk of magnesia -It is ok to shower. No bathe, soaking, swimming or hot tubs -Keep wound clean and dry. Wash incision with soap and water daily. Pat dry, don't rub. -You may find that your appetite is smaller. Eat 3-6 small meals throughout the day. It is important to drink lots of water after surgery, 6-10 glasses a day. -You will have blue urine x 24 hrs. -We do want you up walking, at least 5-6 times per day. This is very important to prevent pneumonia and blood clots. You can climb stairs, take them slowly. -No lifting over 5 pounds w/ right arm x 2 wks -You may find that you are very tired after surgery- this is normal. Activity:: no lifting over 5#'s right arm Remove Dressings/Wound Care:: 24 hours Shower/Bathe:: 24 hours Diet:: As Tolerated Discharge Orders Discharge Orders: Discharge Order (Routine); Ordered 03/08/19 Ordered By: Elmira Reid DS: Diagnosis Discharge Diagnosis (1) Breast cancer: Status: Chronic
--- NOTE | 2019-03-08 15:33 | W.PM.DSUDISC ---
Discharge Plan Disposition Patient Disposition: HOME Condition: Good Discharge Details Reason For Visit: breast cancer Attending Provider: Elmira Reid Primary Care Provider: Kenan Willett Home Meds and New Rx's Prescriptions: New oxycodone 5 mg capsule 5 mg PO Q4H PRN (Reason: pain ) Qty: 14 RF: 0 Continued Shingrix Adjuvant Component-PF suspension 0.5 ml IM DAILY Qty: 0.5 RF: 0 salsalate 500 MG tablet 500 mg PO DAILY RF: 0 hydroxychloroquine [Plaquenil] 200 MG tablet 100 mg PO DAILY Qty: 90 RF: 4 multivitamin 1 EACH capsule 1 ea PO DAILY RF: 0 cholecalciferol (vitamin D3) [Vitamin D3] 2,000 UNIT capsule 1 tab PO DAILY RF: 0 sumatriptan succinate [Imitrex] 100 MG tablet 100 mg PO STAT PRNQty: 27 RF: 3 ferrous sulfate [Feosol] 325 mg (65 mg iron) tablet 325 mg PO DAILY Qty: 60 RF: 2 alprazolam 0.5 mg tablet 0.25 - 0.5 mg PO QHS PRN (Reason: sleep) Qty: 20 RF: 0 Discharge Instructions Additional Instructions: Keep an ice bag on the incision. 20 minutes on and 20 minutes off. Ice keeps the swelling down and swelling causes pain. Make sure you wrap the ice pack in a towel and don't apply directly to the skin. -No driving x 72 hrs or of you are taking narcotic pain medications. -wear tight compression garment or TALI wrap continuously x 5 days. OK to remove to shower. -Do Not remove any steri tapes (white tapes) that cover the incision. If you have steri-tapes on your incision, do not use antibacterial ointment. -Follow-up with Dr. Reid next Friday. -no straining to move bowels -pain meds are very constipating: if you do not move your bowels daily take a dose of OTC milk of magnesia -It is ok to shower. No bathe, soaking, swimming or hot tubs -Keep wound clean and dry. Wash incision with soap and water daily. Pat dry, don't rub. -You may find that your appetite is smaller. Eat 3-6 small meals throughout the day. It is important to drink lots of water after surgery, 6-10 glasses a day. -You will have blue urine x 24 hrs. -We do want you up walking, at least 5-6 times per day. This is very important to prevent pneumonia and blood clots. You can climb stairs, take them slowly. -No lifting over 5 pounds w/ right arm x 2 wks -You may find that you are very tired after surgery- this is normal. Stand Alone Forms: DSU Post op Instructions, Shayy Greene (DSU) Activity:: no lifting over 5#'s right arm Remove Dressings/Wound Care:: 24 hours Shower/Bathe:: 24 hours Diet:: As Tolerated Discharge Orders Discharge Orders: Discharge Order (Routine); Ordered 03/08/19 Ordered By: Elmira Reid DS: Diagnosis Discharge Diagnosis (1) Breast cancer: Status: Chronic
--- NOTE | 2019-03-09 09:52 | ROE_ITS ---
DATE OF PROCEDURE: March 08, 2019 PREOPERATIVE DIAGNOSIS: Right infiltrating ductal breast cancer at the 9 o'clock position two fingerbreadths from the nipple on the right breast. POSTOPERATIVE DIAGNOSIS: Same. PROCEDURE: Lumpectomy and sentinel node biopsy. SURGEON: Elmira Reid D.O. ANESTHESIA: General. ESTIMATED BLOOD LOSS: 10 cc's CONDITION: The patient tolerated the procedure well without complication. INDICATION FOR PROCEDURE: Ms. Liu is a 73-year-old female whose primary is Dr. Kenan Willett. She was recently diagnosed with an infiltrating ductal breast cancer and is here today for definitive surgery. Informed consent was obtained explaining risks and benefits of the procedure, including but not limited to bleeding, infection, scarring, poor cosmesis, tattooing with dye, pneumonia, blood clots, chronic pain, chronic numbness in the arm or the site of the breast, lymphedema in the arm, unclear margins and need for further surgery, inability to do the sentinel node and other unforetold complications. PROCEDURE: The patient is first brought to nuclear medicine and Technetium Sulfur is injected in the 12, 3, 6 and 9 o'clock positions sub-dermally and massaged in for two minutes. Sterile dressings applied. This is done under a sterile procedure. All items associated with the nuclear injection are disposed of in the appropriate manner per OSHA/Nuclear Control policy.. The patient is then brought to same-day surgery and is readied for the procedure, allowing the isotope to migrate for the next three hours. The ultrasound is done in preop and the area is localized; it is palpable. She does have a scar at the 9 o'clock position. Our initial plan was to do a subareolar position, but I do want to excise the old scar from the biopsy and the incision was moved to the periareolar region at the 8 to 9 o'clock position. The patient is then brought to the operative suite and placed in the supine position. General anesthesia is administered per the Department of Anesthesia. The right arm is abducted, and padded, the right side had been marked previously in preop. Five cc's of methylene blue is injected sub-dermally into the 3, 6, 9 and 12 o'clock positions and massaged for two minutes. The area was then prepped and draped in a sterile fashion using a Betadine scrub solution. A Tomlinson was placed and Antibiotics were initiated. A time-out was done. Counts initially at the breast site are 12,000; counts in the axilla are negligible. We decided to do the breast first. Again the mass is still palpable. The area is infiltrated with 20 cc's of 0.25% Marcaine with epinephrine. A #12 blade is used to excise the old biopsy scar and to excise the mass. It is then marked with a blue suture posterior, a long black suture laterally and the superior margin is actually the skin, This is passed off for specimen. More tissue is taken from the superior medial wall with a stitch facing the side that was facing the cavity, and then additional tissue taken from the posterior wall, again with a stitch on the side that was facing the tumor. Careful palpation is done. There are no other signs of any significant tumor or any abnormalities. The biopsy cavity is irrigated with water. Electrocautery is used to provide hemostasis with careful evacuation of all plume. A second search was done and again there are no signs of any suspicious tumor. Clips are used to alfredo the tumor bed. It is closed with #4-0 Monocryl and the skin was closed in two layers of #4-0 Monocryl in a running subcuticular fashion. Steri-Strips and sterile dressings are applied. Attention is next turned to the sentinel node. Gloves are exchanged and a clean set was used to do the node. She's had two previous breast biopsies in the 10- 11 o'clock position of the right breast prior, which may account for why we did not have the best transmission. a half-inch incision in the most inferior and medial portion of the axilla and inserting the probe. We do encounter one node that does register in the 200's. There is slight blue dye visible. This node is then dissected out. Clips are placed on the lymphatics. Again this node reads in about the 200-300 range. After we take this node out there is only some background scattering in the 30's. There is an adjacent node that is taken as well; this node has no reactivity. The site is irrigated. There is no bleeding noted. Pressure is held and it is closed in two layers, the deep tissue with #4-0 Monocryl and the skin with #4-0 Monocryl in a subcuticular fashion. Steri-Strips and sterile dressings are applied. Compression dressing is applied. The patient tolerated the procedure well without complication and transferred to the recovery room in stable condition. The family is apprised of findings. Thank you for allowing me to participate in the care of this patient. cc: Kenan Willett M.D.
== END 2019-03-08 15:38 | disposition home or self-care (01) ==
PROVIDERS: PCP Family Medicine; Visit Provider Surgery
PROC: (CPT 38525; principal; 2019-03-08 10:15)
PROC: (CPT 19302; 2019-03-08 10:15)
DX: C50.411 Malignant neoplasm of upper-outer quadrant of right female breast (principal); Z17.0 Estrogen receptor positive status [ER+]
CPT/HCPCS: 38525; 19301; 38792; A9541; 88307; J1200; J1885; J2405; J3010

== ENCOUNTER 2019-04-16 12:13 | Outpatient (CLI) | payer OTHER, SELFPAY ==
[2019-04-16 12:53] LABS: Absolute Basophil Count 0.02 k/cumm (0.0-0.2); Absolute Eosinophil Count 0.07 k/cumm (0.0-0.7); Absolute Lymphocyte Count 0.82 k/cumm (1.2-3.4); Absolute Neutrophil Count 1.99 k/cumm (1.2-6.7); Basophils % 0.6; Eosinophils % 2.1; HCT 42.3 % (36.0-46.0); HGB 13.6 g/dL (12.0-15.5); Lymphocytes % 24.8; Mean Corp. HGB Concentration 32.2 g/dL (32.0-36.0); Mean Corpuscular Hemoglobin 30.4 pg (27.0-33.0); Mean Corpuscular Volume 94.4 fL (80-95); Mean Platelet Volume 9.8 fL (8.0-11.0); Monocytes % 12.1; Neutrophils % 60.4; Platelet Count 200 x1000/uL (130-400); RBC 4.48 m/cumm (4.00-5.20); RBC Distribution Width 12.6 % (11.7-14.6)
[2019-04-16 13:41] LABS: ALT 29 U/L (14-59); AST 19 U/L (15-37); Albumin 3.9 g/dL (3.4-5.0); Alkaline Phosphatase 55 U/L (46-116); CREATININE 0.73 mg/dL (0.55-1.02)
[2019-04-16 13:46] LABS: ESR 3 mm/hr (0-30)
== END 2019-04-16 12:33 ==
PROVIDERS: PCP Family Medicine; Visit Provider Internal Medicine Rheumatology
DX: M06.9 Rheumatoid arthritis, unspecified (principal); Z79.899 Other long term (current) drug therapy
CPT/HCPCS: 36415; 85652; 82040; 82565; 84075; 84450; 84460; 85025

== ENCOUNTER 2019-04-29 00:39 | Outpatient (CLI) | payer OTHER, SELFPAY ==
--- NOTE | 2019-04-29 16:40 | DI.US_ITS ---
EXAM: US THYROID CLINICAL HISTORY: thyroid nodule seen on CT E04.1 TECHNIQUE: Ultrasound performed using standard protocol. COMPARISON: US breast RT limited from 01/12/2019 FINDINGS: Right lobe measures 4.3 x 1.5 x 1.4 centimeters. There is a complex septated cystic and solid mass i n the superior aspect of the right lobe. It measures 1.6 x 1.1 x 1.6 centimeters. There is internal vascularity noted. There is a 1.3 x 0.9 x 1.3 centimeter complex mostly solid nodule in the right l obe. There is internal vascularity noted. There are other nodules seen in the right lobe of the thy roid gland which do not appear suspicious sonographically. The left lobe measures 4.1 x 1.5 x 1.4 centimeters. There is a complex cystic and solid mass in the midpole measuring 1.7 x 0.9 x 1.0 centimeters. Internal blood flow is present. There is an unremark able solid nodule in the inferior pole measuring 0.7 x 0.5 x 0.4 centimeters. The isthmus is within normal limits at 2.4 millimeters. IMPRESSION: Multinodular thyroid gland. Complex vascular nodules are seen in the upper lobes bilaterally. Furth er evaluation with aspiration/biopsy of these nodules should be considered.
== END 2019-04-29 00:59 ==
PROVIDERS: PCP Family Medicine; Visit Provider Family Medicine
DX: E04.2 Nontoxic multinodular goiter
CPT/HCPCS: 76536

== ENCOUNTER 2019-05-28 03:32 | Outpatient (CLI) | payer OTHER, SELFPAY ==
--- NOTE | 2019-05-28 08:44 | DI.US_ITS ---
EXAM: US ABDOMEN CLINICAL HISTORY: ABD PAIN, RUQ PAIN, R10.11 TECHNIQUE: Ultrasound performed using standard protocol. COMPARISON: US THYROID from 04/29/2019 FINDINGS: The liver contains multiple simple cysts, the largest in the right lobe inferiorly measuring about 5. 4 cm in greatest diameter. No other significant hepatic lesion seen. Multiple bilateral renal cysts are also noted, all simple cysts, the largest in the left kidney measuring about 4.7 cm in greatest diameter. There is been surgically removed. No biliary dilatation seen. Pancreas is grossly unremarkable. Abdominal aorta and IVC are of normal diameter. IMPRESSION: Multiple hepatic and renal simple cysts. Otherwise unremarkable scan post cholecystectomy.
== END 2019-05-28 03:52 ==
PROVIDERS: PCP Family Medicine; Visit Provider Family Medicine
DX: R10.11 Right upper quadrant pain (principal); N28.1 Cyst of kidney, acquired; K76.89 Other specified diseases of liver; Z90.49 Acquired absence of other specified parts of digestive tract
CPT/HCPCS: 76700

== ENCOUNTER 2019-06-01 12:26 | Outpatient (CLI) | payer OTHER, SELFPAY ==
[2019-06-01 14:19] LABS: TSH (W/Ref FT4) 0.93 uIU/mL (0.36-3.74)
== END 2019-06-01 12:46 ==
PROVIDERS: PCP Family Medicine; Visit Provider Family Medicine
DX: E03.9 Hypothyroidism, unspecified (principal)
CPT/HCPCS: 84443

== ENCOUNTER 2019-06-08 08:06 | Outpatient (CLI) | payer OTHER, SELFPAY ==
[2019-06-08 08:53] LABS: Abs Immature Grans 0.01 k/cumm (0.0-0.09); Absolute Basophil Count 0.02 k/cumm (0.0-0.2); Absolute Eosinophil Count 0.09 k/cumm (0.0-0.7); Absolute Lymphocyte Count 0.44 k/cumm (1.2-3.4); Absolute Neutrophil Count 1.27 k/cumm (1.2-6.7); Basophils % 0.9; Eosinophils % 4.2; HCT 42.3 % (36.0-46.0); HGB 13.6 g/dL (12.0-15.5); Immature Grans % 0.5 %; Lymphocytes % 20.7; Mean Corp. HGB Concentration 32.2 g/dL (32.0-36.0); Mean Corpuscular Hemoglobin 30.4 pg (27.0-33.0); Mean Corpuscular Volume 94.4 fL (80-95); Mean Platelet Volume 9.8 fL (8.0-11.0); Monocytes % 14.1; Neutrophils % 59.6; Platelet Count 165 x1000/uL (130-400); RBC 4.48 m/cumm (4.00-5.20); RBC Distribution Width 12.9 % (11.7-14.6); White Blood Cell Count 2.13 k/cumm (4.4-10.8)
[2019-06-08 09:04] LABS: ALT 26 U/L (14-59); AST 23 U/L (15-37); Albumin 3.7 g/dL (3.4-5.0); Alkaline Phosphatase 55 U/L (46-116); Anion Gap 7.8 mmol/L (3-11); BUN 13 mg/dL (7-18); Bilirubin, Total 0.5 mg/dL (0.2-1.0); CO2 28.2 mmol/L (21.0-32.0); CREATININE 0.76 mg/dL (0.55-1.02); Calcium 8.6 mg/dL (8.5-10.1); Chloride 109 mmol/L (98-107); Glucose 96 mg/dL (74-106); Sodium 145 mmol/L (136-145); Total Protein 6.3 g/dL (6.4-8.2)
== END 2019-06-08 08:26 ==
PROVIDERS: PCP Family Medicine; Visit Provider Internal Medicine
DX: C50.911 Malignant neoplasm of unspecified site of right female breast (principal); Z17.0 Estrogen receptor positive status [ER+]
CPT/HCPCS: 36415; 80053; 85025

== ENCOUNTER 2019-07-16 09:46 | Outpatient (CLI) | payer OTHER, SELFPAY ==
[2019-07-16 10:49] LABS: Absolute Basophil Count 0.01 k/cumm (0.0-0.2); Absolute Eosinophil Count 0.04 k/cumm (0.0-0.7); Absolute Lymphocyte Count 0.44 k/cumm (1.2-3.4); Absolute Monocyte Count 0.26 k/cumm (0.11-0.7); Absolute Neutrophil Count 1.53 k/cumm (1.2-6.7); Basophils % 0.4; Eosinophils % 1.8; HCT 41.5 % (36.0-46.0); HGB 13.3 g/dL (12.0-15.5); Lymphocytes % 19.3; Mean Corpuscular Hemoglobin 30.3 pg (27.0-33.0); Mean Corpuscular Volume 94.5 fL (80-95); Monocytes % 11.4; Neutrophils % 67.1; Platelet Count 171 x1000/uL (130-400); RBC 4.39 m/cumm (4.00-5.20); RBC Distribution Width 12.8 % (11.7-14.6); White Blood Cell Count 2.28 k/cumm (4.4-10.8)
[2019-07-16 11:06] LABS: ALT 30 U/L (14-59); AST 20 U/L (15-37); Albumin 3.9 g/dL (3.4-5.0); Alkaline Phosphatase 59 U/L (46-116); Anion Gap 8.1 mmol/L (3-11); BUN 16 mg/dL (7-18); Bilirubin, Total 0.5 mg/dL (0.2-1.0); CO2 28.9 mmol/L (21.0-32.0); CREATININE 0.78 mg/dL (0.55-1.02); Calcium 8.7 mg/dL (8.5-10.1); Chloride 108 mmol/L (98-107); Glucose 80 mg/dL (74-106); Sodium 145 mmol/L (136-145); Total Protein 6.1 g/dL (6.4-8.2)
== END 2019-07-16 10:06 ==
PROVIDERS: PCP Family Medicine; Visit Provider Internal Medicine
DX: C50.911 Malignant neoplasm of unspecified site of right female breast (principal); Z17.0 Estrogen receptor positive status [ER+]
CPT/HCPCS: 36415; 80053; 85025

== ENCOUNTER 2019-10-20 02:55 | Outpatient (CLI) | payer OTHER, SELFPAY ==
[2019-10-20 17:11] LABS: Absolute Basophil Count 0.01 k/cumm (0.0-0.2); Absolute Eosinophil Count 0.07 k/cumm (0.0-0.7); Absolute Lymphocyte Count 0.86 k/cumm (1.2-3.4); Absolute Neutrophil Count 1.59 k/cumm (1.2-6.7); Basophils % 0.3; Eosinophils % 2.4; HCT 39.5 % (36.0-46.0); HGB 12.7 g/dL (12.0-15.5); Lymphocytes % 29.4; Mean Corp. HGB Concentration 32.2 g/dL (32.0-36.0); Mean Corpuscular Hemoglobin 30.3 pg (27.0-33.0); Mean Corpuscular Volume 94.3 fL (80-95); Mean Platelet Volume 10.6 fL (8.0-11.0); Monocytes % 13.7; Neutrophils % 54.2; Platelet Count 178 x1000/uL (130-400); RBC 4.19 m/cumm (4.00-5.20); White Blood Cell Count 2.93 k/cumm (4.4-10.8)
[2019-10-20 20:21] LABS: ALT 36 U/L (14-59); AST 23 U/L (15-37); Albumin 3.8 g/dL (3.4-5.0); Alkaline Phosphatase 63 U/L (46-116); Anion Gap 7.4 mmol/L (3-11); BUN 24 mg/dL (7-18); Bilirubin, Total 0.3 mg/dL (0.2-1.0); CO2 27.6 mmol/L (21.0-32.0); CREATININE 0.78 mg/dL (0.55-1.02); Calcium 8.3 mg/dL (8.5-10.1); Chloride 108 mmol/L (98-107); Glucose 111 mg/dL (74-106); Potassium 4.1 mmol/L (3.5-5.1); Sodium 143 mmol/L (136-145)
== END 2019-10-20 03:15 ==
PROVIDERS: PCP Family Medicine; Visit Provider Internal Medicine
DX: C50.911 Malignant neoplasm of unspecified site of right female breast (principal); Z17.0 Estrogen receptor positive status [ER+]
CPT/HCPCS: 36415; 80053; 85025

== ENCOUNTER 2020-01-14 04:08 | Outpatient (CLI) | payer OTHER, SELFPAY ==
--- NOTE | 2020-01-14 07:35 | DI.MAMMO_ITS ---
EXAM: MG MAMMO SCREENING 60 MIN DUR CLINICAL HISTORY: s/p right breast cancer.SCREENING, Z17.0,,C50.919.R92.2 TECHNIQUE: Mammograms were interpreted according to the usual protocol including computer analysis w [employer] CAD system, tomosynthesis and C-view imaging. COMPARISON: FINDINGS: The breasts are heterogeneously dense. There is a prior right lumpectomy for breast carcinoma. No d ominant mass or clumped microcalcification identified in either breast. Today's examination is the 1 st post lumpectomy examination. No change in appearance of the left breast. IMPRESSION: No specific evidence of malignancy at this time. Routine screening examinations are suggested at yea rly intervals due to the history of breast carcinoma. BI-RADS Category 1 - Negative Breast Density - Category C - Heterogeneously dense
== END 2020-01-14 04:28 ==
PROVIDERS: PCP Family Medicine; Visit Provider Surgery
DX: Z12.31 Encounter for screening mammogram for malignant neoplasm of breast (principal); C50.911 Malignant neoplasm of unspecified site of right female breast; Z17.0 Estrogen receptor positive status [ER+]; R92.2 Inconclusive mammogram
CPT/HCPCS: 77063; 77067

== ENCOUNTER 2020-01-18 04:47 | Outpatient (CLI) | payer OTHER, SELFPAY ==
[2020-01-18 10:12] LABS: Absolute Basophil Count 0.03 10^3/uL (0.0-0.2); Absolute Eosinophil Count 0.05 10^3/uL (0.0-0.7); Absolute Lymphocyte Count 0.61 10^3/uL (1.2-3.4); Absolute Monocyte Count 0.24 10^3/uL (0.1-0.8); Basophils % 1.2; Eosinophils % 2.1; HCT 41.2 % (36.0-46.0); HGB 13.3 g/dL (11.2-15.7); Lymphocytes % 25.1; MCH 30.6 pg (27.0-33.0); MCHC 32.3 % (32.0-36.0); MCV 94.7 fL (80-95); MPV 10.1 fL (8.0-11.0); Monocytes % 9.9; Neutrophils % 61.7; Nucleated RBC 0 %; Platelet Count 152 10^3/uL (130-400); RBC 4.35 10^6/uL (3.93-5.22); RDW 12.1 % (11.7-14.6); RDW-SD 42.5 fL; WBC 2.43 10^3/uL (4.4-10.8)
[2020-01-18 10:28] LABS: ALT 33 U/L (14-59); AST 22 U/L (15-37); Albumin 3.8 g/dL (3.4-5.0); Alkaline Phosphatase 53 U/L (46-116); Anion Gap 5.3 mmol/L (3-11); BUN 14 mg/dL (7-18); Bilirubin, Total 0.5 mg/dL (0.2-1.0); CO2 30.7 mmol/L (21.0-32.0); CREATININE 0.77 mg/dL (0.55-1.02); Calcium 8.5 mg/dL (8.5-10.1); Chloride 109 mmol/L (98-107); Glucose 98 mg/dL (74-106); Sodium 145 mmol/L (136-145); Total Protein 6.3 g/dL (6.4-8.2)
[2020-01-18 10:49] LABS: Calculated LDL 141 mg/dL (<100); Cholesterol 222 mg/dL (<200); ESR 7 mm/hr (0-30); HDL Cholesterol 65 mg/dL (40-60); Triglyceride 82 mg/dL (<150)
== END 2020-01-18 05:07 ==
PROVIDERS: PCP Family Medicine; Visit Provider Internal Medicine
DX: C50.911 Malignant neoplasm of unspecified site of right female breast (principal); Z17.0 Estrogen receptor positive status [ER+]
CPT/HCPCS: 36415; 80048; 80053; 80061; 85652; 85025

== ENCOUNTER 2020-04-11 04:04 | Outpatient (CLI) | payer OTHER, SELFPAY ==
[2020-04-11 09:36] LABS: Abs Immature Grans 0.01 10^3/uL (0.0-0.06); Absolute Basophil Count 0.02 10^3/uL (0.0-0.2); Absolute Eosinophil Count 0.11 10^3/uL (0.0-0.7); Absolute Lymphocyte Count 0.58 10^3/uL (1.2-3.4); Absolute Monocyte Count 0.34 10^3/uL (0.1-0.8); Absolute Neutrophil Count 1.56 10^3/uL (1.2-6.7); Basophils % 0.8; Eosinophils % 4.2; HCT 41.6 % (36.0-46.0); HGB 13.4 g/dL (11.2-15.7); Immature Grans % 0.4; Lymphocytes % 22.1; MCH 30.2 pg (27.0-33.0); MCHC 32.2 % (32.0-36.0); MCV 93.9 fL (80-95); MPV 9.9 fL (8.0-11.0); Neutrophils % 59.5; Nucleated RBC 0 %; Platelet Count 170 10^3/uL (130-400); RBC 4.43 10^6/uL (3.93-5.22); RDW 12.5 % (11.7-14.6); RDW-SD 43.4 fL; WBC 2.62 10^3/uL (4.4-10.8)
[2020-04-11 10:30] LABS: ESR 6 mm/hr (0-30)
[2020-04-11 10:44] LABS: ALT 28 U/L (14-59); AST 22 U/L (15-37); Albumin 3.8 g/dL (3.4-5.0); Alkaline Phosphatase 59 U/L (46-116); Anion Gap 5.5 mmol/L (3-11); BUN 14 mg/dL (7-18); Bilirubin, Total 0.5 mg/dL (0.2-1.0); CO2 31.5 mmol/L (21.0-32.0); CREATININE 0.83 mg/dL (0.55-1.02); Calcium 8.5 mg/dL (8.5-10.1); Chloride 107 mmol/L (98-107); Glucose 73 mg/dL (74-106); Potassium 4.1 mmol/L (3.5-5.1); Sodium 144 mmol/L (136-145); Total Protein 6.1 g/dL (6.4-8.2)
== END 2020-04-11 04:24 ==
PROVIDERS: Internal Medicine Rheumatology; PCP Family Medicine; Visit Provider Internal Medicine
DX: C50.411 Malignant neoplasm of upper-outer quadrant of right female breast (principal); Z17.0 Estrogen receptor positive status [ER+]; Z79.811 Long term (current) use of aromatase inhibitors; M06.9 Rheumatoid arthritis, unspecified; Z79.899 Other long term (current) drug therapy
CPT/HCPCS: 36415; 80053; 85652; 85025

== ENCOUNTER 2020-07-13 03:21 | Outpatient (CLI) | payer OTHER, SELFPAY ==
[2020-07-13 12:13] LABS: Abs Immature Grans 0.01 10^3/uL (0.0-0.06); Absolute Basophil Count 0.02 10^3/uL (0.0-0.2); Absolute Eosinophil Count 0.06 10^3/uL (0.0-0.7); Absolute Lymphocyte Count 0.66 10^3/uL (1.2-3.4); Absolute Monocyte Count 0.31 10^3/uL (0.1-0.8); Absolute Neutrophil Count 1.68 10^3/uL (1.2-6.7); Basophils % 0.7; Eosinophils % 2.2; HCT 39.6 % (36.0-46.0); HGB 12.8 g/dL (11.2-15.7); Immature Grans % 0.4; Lymphocytes % 24.1; MCH 30.5 pg (27.0-33.0); MCHC 32.3 % (32.0-36.0); MCV 94.3 fL (80-95); MPV 10.4 fL (8.0-11.0); Monocytes % 11.3; Neutrophils % 61.3; Nucleated RBC 0 %; Platelet Count 162 10^3/uL (130-400); RDW 12.9 % (11.7-14.6); RDW-SD 44.4 fL; WBC 2.74 10^3/uL (4.4-10.8)
[2020-07-13 13:11] LABS: ALT 33 U/L (14-59); AST 24 U/L (15-37); Albumin 3.8 g/dL (3.4-5.0); Alkaline Phosphatase 61 U/L (46-116); Anion Gap 6.2 mmol/L (3-11); BUN 19 mg/dL (7-18); Bilirubin, Total 0.5 mg/dL (0.2-1.0); CO2 29.8 mmol/L (21.0-32.0); CREATININE 0.8 mg/dL (0.55-1.02); Calcium 8.5 mg/dL (8.5-10.1); Chloride 108 mmol/L (98-107); Glucose 91 mg/dL (74-106); Potassium 4.5 mmol/L (3.5-5.1); Sodium 144 mmol/L (136-145); Total Protein 6.1 g/dL (6.4-8.2)
== END 2020-07-13 03:22 | disposition home or self-care (01) ==
LOC: LBO 03:21
PROVIDERS: PCP Family Medicine; Visit Provider Internal Medicine
DX: C50.411 Malignant neoplasm of upper-outer quadrant of right female breast (principal); Z17.0 Estrogen receptor positive status [ER+]; Z79.811 Long term (current) use of aromatase inhibitors
CPT/HCPCS: 36415; 80053; 85025

== ENCOUNTER 2020-09-12 01:03 | Outpatient (CLI) | payer OTHER, SELFPAY ==
--- NOTE | 2020-09-12 06:45 | DI.MAMMO_ITS ---
EXAM: MG MAMMO SCREENING 60 MIN DUR CLINICAL HISTORY: breast cancer screening,personal h/o breast ca,inconclusive mammo,dense TECHNIQUE: Bilateral full field digital CC and MLO mammographic images were obtained with 3D tomosyn thesis and utilizing computer aided detection (CAD). COMPARISON: Available for comparison. FINDINGS: Masses/Architectural Distortion: None seen. The patient is status post right lumpectomy. Microcalcifications: No suspicious pleomorphic-type are seen. Skin Thickening/Nipple Retraction: None. IMPRESSION: 1. No significant interval change with no specific features of malignancy noted. 2. Unless there is more urgent need, screening mammography is recommended, as per [place] [employer] guidelines. 3. Findings were discussed with the patient on the date of the examination. BI-RADS Category 2 - Benign Findings Breast Density - Category C - Heterogeneously dense Breast density category C or D implies that the patient has dense breast tissue. Dense breast tissue is very common and is not abnormal but dense breast tissue can make it harder to find cancer on a ma mmogram. Also, dense breast tissue may increase their breast cancer risk. This information about the result of the mammogram report was provided to the patient to raise their awareness. Use this report when you speak with the patient about their risks for breast cancer, which includes their family hist ory. At that time, you may recommend for more screening tests (Ultrasound or MRI) as they might be us eful based on their risk. A negative radiographic report should not delay biopsy if a dominant or clinically suspicious mass is present. Up to ten percent of cancers are not identified on mammography. A negative report may reinforce clinical impression. Adenosis and dense breasts may obscure an underlying neoplasm. False positive reports average 6 to 10%. Patient will receive a letter notifying them of these results.
== END 2020-09-12 01:23 ==
PROVIDERS: PCP Family Medicine; Visit Provider Surgery
DX: Z12.31 Encounter for screening mammogram for malignant neoplasm of breast (principal); Z85.3 Personal history of malignant neoplasm of breast
CPT/HCPCS: 77063; 77067

== ENCOUNTER 2020-09-12 03:19 | Outpatient (CLI) | payer OTHER, SELFPAY ==
[2020-09-12 09:00] LABS: Abs Immature Grans 0.01 10^3/uL (0.0-0.06); Absolute Basophil Count 0.03 10^3/uL (0.0-0.2); Absolute Lymphocyte Count 0.66 10^3/uL (1.2-3.4); Absolute Monocyte Count 0.28 10^3/uL (0.1-0.8); Absolute Neutrophil Count 1.69 10^3/uL (1.2-6.7); Basophils % 1.1; Eosinophils % 3.6; HCT 43.8 % (36.0-46.0); HGB 13.9 g/dL (11.2-15.7); Immature Grans % 0.4; Lymphocytes % 23.8; MCH 30.5 pg (27.0-33.0); MCHC 31.7 % (32.0-36.0); MCV 96.3 fL (80-95); MPV 10.5 fL (8.0-11.0); Monocytes % 10.1; Nucleated RBC 0 %; Platelet Count 165 10^3/uL (130-400); RBC 4.55 10^6/uL (3.93-5.22); RDW 12.4 % (11.7-14.6); RDW-SD 44.6 fL; WBC 2.77 10^3/uL (4.4-10.8)
[2020-09-12 10:13] LABS: ALT 35 U/L (14-59); AST 24 U/L (15-37); Alkaline Phosphatase 59 U/L (46-116); Anion Gap 5.8 mmol/L (3-11); BUN 15 mg/dL (7-18); Bilirubin, Total 0.5 mg/dL (0.2-1.0); CO2 31.2 mmol/L (21.0-32.0); CREATININE 0.8 mg/dL (0.55-1.02); Calcium 8.9 mg/dL (8.5-10.1); Chloride 109 mmol/L (98-107); Glucose 73 mg/dL (74-106); Potassium 4.2 mmol/L (3.5-5.1); Sodium 146 mmol/L (136-145); Total Protein 6.3 g/dL (6.4-8.2)
== END 2020-09-12 03:20 | disposition home or self-care (01) ==
LOC: LBO 03:19
PROVIDERS: PCP Family Medicine; Visit Provider Internal Medicine
DX: C50.411 Malignant neoplasm of upper-outer quadrant of right female breast (principal); Z17.0 Estrogen receptor positive status [ER+]
CPT/HCPCS: 36415; 80053; 85025

== ENCOUNTER 2020-10-25 02:51 | Outpatient (CLI) | payer OTHER, SELFPAY ==
[2020-10-25 11:34] LABS: Abs Immature Grans 0.01 10^3/uL (0.0-0.06); Absolute Basophil Count 0.02 10^3/uL (0.0-0.2); Absolute Eosinophil Count 0.04 10^3/uL (0.0-0.7); Absolute Lymphocyte Count 0.63 10^3/uL (1.2-3.4); Absolute Monocyte Count 0.36 10^3/uL (0.1-0.8); Basophils % 0.7; Eosinophils % 1.3; HCT 41.4 % (36.0-46.0); HGB 13.1 g/dL (11.2-15.7); Immature Grans % 0.3; Lymphocytes % 20.6; MCH 30.4 pg (27.0-33.0); MCHC 31.6 % (32.0-36.0); MCV 96.1 fL (80-95); Monocytes % 11.8; Neutrophils % 65.3; Nucleated RBC 0 %; Platelet Count 168 10^3/uL (130-400); RBC 4.31 10^6/uL (3.93-5.22); RDW 12.5 % (11.7-14.6); RDW-SD 44.2 fL; WBC 3.06 10^3/uL (4.4-10.8)
[2020-10-25 11:51] LABS: ESR < 1 mm/hr (0-30)
[2020-10-25 12:41] LABS: ALT 40 U/L (14-59); AST 27 U/L (15-37); Albumin 3.8 g/dL (3.4-5.0); Alkaline Phosphatase 64 U/L (46-116); Anion Gap 5.6 mmol/L (3-11); BUN 16 mg/dL (7-18); Bilirubin, Total 0.5 mg/dL (0.2-1.0); CO2 31.4 mmol/L (21.0-32.0); CREATININE 0.8 mg/dL (0.55-1.02); Calcium 8.6 mg/dL (8.5-10.1); Chloride 109 mmol/L (98-107); Glucose 89 mg/dL (74-106); Potassium 4.6 mmol/L (3.5-5.1); Sodium 146 mmol/L (136-145)
== END 2020-10-25 02:52 | disposition home or self-care (01) ==
LOC: LBO 02:51
PROVIDERS: PCP Family Medicine; Visit Provider Internal Medicine
DX: C50.411 Malignant neoplasm of upper-outer quadrant of right female breast (principal); Z17.0 Estrogen receptor positive status [ER+]; Z79.811 Long term (current) use of aromatase inhibitors; M06.00 Rheumatoid arthritis without rheumatoid factor, unspecified site
CPT/HCPCS: 36415; 80053; 85652; 85025

== ENCOUNTER 2021-04-25 02:12 | Outpatient (CLI) | payer OTHER, SELFPAY ==
[2021-04-25 14:22] LABS: Abs Immature Grans 0.01 10^3/uL (0.0-0.06); Absolute Basophil Count 0.02 10^3/uL (0.0-0.2); Absolute Eosinophil Count 0.04 10^3/uL (0.0-0.7); Absolute Lymphocyte Count 0.65 10^3/uL (1.2-3.4); Absolute Monocyte Count 0.32 10^3/uL (0.1-0.8); Absolute Neutrophil Count 2.23 10^3/uL (1.2-6.7); Basophils % 0.6; Eosinophils % 1.2; HCT 41.5 % (36.0-46.0); Immature Grans % 0.3; Lymphocytes % 19.9; MCH 30.1 pg (27.0-33.0); MCHC 31.3 % (32.0-36.0); MCV 96.1 fL (80-95); MPV 9.5 fL (8.0-11.0); Monocytes % 9.8; Neutrophils % 68.2; Nucleated RBC 0 %; Platelet Count 157 10^3/uL (130-400); RBC 4.32 10^6/uL (3.93-5.22); RDW 12.8 % (11.7-14.6); WBC 3.27 10^3/uL (4.4-10.8)
[2021-04-25 14:36] LABS: ALT 35 U/L (14-59); AST 27 U/L (15-37); Albumin 3.7 g/dL (3.4-5.0); Alkaline Phosphatase 64 U/L (46-116); Anion Gap 4.7 mmol/L (3-11); BUN 17 mg/dL (7-18); Bilirubin, Total 0.3 mg/dL (0.2-1.0); CO2 32.3 mmol/L (21.0-32.0); CREATININE 0.7 mg/dL (0.55-1.02); Calcium 8.5 mg/dL (8.5-10.1); Chloride 109 mmol/L (98-107); Glucose 93 mg/dL (74-106); Potassium 3.9 mmol/L (3.5-5.1); Sodium 146 mmol/L (136-145); Total Protein 6.3 g/dL (6.4-8.2)
== END 2021-04-25 02:13 | disposition home or self-care (01) ==
PROVIDERS: PCP Family Medicine; Visit Provider Internal Medicine
DX: C50.411 Malignant neoplasm of upper-outer quadrant of right female breast (principal)
CPT/HCPCS: 36415; 80053; 85652; 85025

== ENCOUNTER → 2021-10-01 01:44 | Outpatient (CLI) | payer OTHER, SELFPAY ==
--- NOTE | 2021-10-01 10:01 | DI.RAD_ITS ---
Exam(s) XR SHOULDER RT COMPLETE 2+V EXAM: XR SHOULDER RT COMPLETE 2+V CLINICAL HISTORY: rt shoulder pain and left hand pain,m25.511. TECHNIQUE: 2D digital imaging was performed of the right shoulder. Six images were obtained. AP, G rashey, Y-view and axillary views were obtained. COMPARISON: No exams were available for comparison FINDINGS: BONES: No acute fracture is present. No bony destructive lesion is seen. JOINTS: No dislocation present. Mild degenerative changes are seen at the acromioclavicular and gleno humeral joints. SOFT TISSUE: There are surgical clips seen in the right axilla. IMPRESSION: Mild degenerative changes in the right shoulder. DATA REPOSITORY: RADIATION DOSE DELIVERED:
== END ==
PROVIDERS: PCP Family Medicine; Visit Provider Family Medicine
DX: M25.511 Pain in right shoulder (principal); M19.011 Primary osteoarthritis, right shoulder
CPT/HCPCS: 73030

== ENCOUNTER 2021-10-17 14:32 | Outpatient (CLI) | payer OTHER, SELFPAY ==
--- NOTE | 2021-10-17 13:36 | DI.RAD_ITS ---
Exam(s) XR ARTHRITIS SERIES EXAM: XR ARTHRITIS SERIES CLINICAL HISTORY: pain TECHNIQUE: COMPARISON: CR ARTHITIS SERIES-ADI HAND WRIST from 10/02/2010 FINDINGS: Three views of the hands were obtained. There are severe hypertrophic degenerative changes involving the IP joints bilaterally. Additionally, moderate degenerative changes are seen involving the great er multangular 1st metacarpal joints bilaterally. There is fusion of the DIP joint of the ring finge r. No other significant bony abnormality seen. IMPRESSION: The appearance is consistent with degenerative change involving the IP joints as described above RADIATION DOSE DELIVERED: Total DLP
== END 2021-10-17 14:33 | disposition home or self-care (01) ==
LOC: DIORS 14:33
PROVIDERS: PCP Family Medicine; Referring Provider Family Medicine; Visit Provider Physician Assistant Surgical
DX: M06.89 Other specified rheumatoid arthritis, multiple sites (principal); M25.541 Pain in joints of right hand; M25.542 Pain in joints of left hand; M19.041 Primary osteoarthritis, right hand; M19.042 Primary osteoarthritis, left hand
CPT/HCPCS: 73120

== ENCOUNTER → 2021-10-30 01:20 | Outpatient (CLI) | payer OTHER, SELFPAY ==
--- NOTE | 2021-10-30 | DI.MAMMO_ITS ---
Exam(s) MG MAMMO SCREENING 60 MIN DUR EXAM: MG MAMMO SCREENING 60 MIN DUR CLINICAL HISTORY: SCREENING, PERSONAL H/O BREAST CA,C50.411,Z17.0. TECHNIQUE: Bilateral full field digital CC and MLO mammographic images were obtained with 3D tomosyn thesis and utilizing computer aided detection (CAD). COMPARISON: Prior mammograms were reviewed, the most recent being August 2020. This patient underwen t right breast lumpectomy in 2019. She recently had an unremarkable MRI scan at an outside institution in January 2021 and is apparent ly scheduled for repeat MRI scan in January 2022. FINDINGS: The fibroglandular tissue pattern is again noted be moderately dense, this somewhat decreasing the se nsitivity of the mammogram for finding hidden underlying lesions. There are no new obvious spiculated masses nor malignant appearing microcalcification groups. The right breast lumpectomy site region appears stable. Asymmetric density anteriorly in the right breast is unchanged studies dating back to at least 2011. Asymmetric density in left breast retroareolar region was subjected to spot compression 3D view and this renders this area less concerning and similar in appearance to prior mammograms. There is no new significant architectural distortion nor skin thickening-retraction. IMPRESSION: Moderately dense fibroglandular tissue. Stable appearance of right breast lumpectomy site. No obvio us radiographic evidence of malignancy. This patient informs us that she will be undergoing her yearly breast MRI study in January 2022. BI-RADS Category 2 - Benign Findings Breast Density - Category C - Heterogeneously dense Breast density Category C or D implies that the patient has dense breast tissue. Dense breast tissue can make it harder to find cancer on a mammogram. Dense breast tissue is also associated with an incr eased risk of breast cancer. This information about the result of the mammogram report was provided to the patient to raise their awareness. Use this report when you speak with the patient about their risks for breast cancer, which includes their family history. At that time, you may recommend additional screening tests (Ultrasoun d or MRI) as these tests may add significant information. A negative radiographic report should not delay biopsy if a dominant or clinically suspicious mass is present. Up to ten percent of cancers are not identified on mammography. A negative report may reinforce clinical impression. Adenosis and dense breasts may obscure an underlying neoplasm. False positive reports average 6 to 10%. Patient will receive a letter notifying them of these results.
== END ==
PROVIDERS: PCP Family Medicine; Visit Provider Nurse Practitioner Adult Health
DX: Z12.31 Encounter for screening mammogram for malignant neoplasm of breast (principal); Z85.3 Personal history of malignant neoplasm of breast; Z98.890 Other specified postprocedural states; Z79.811 Long term (current) use of aromatase inhibitors
CPT/HCPCS: 77063; 77067

== ENCOUNTER 2022-01-08 03:27 | Outpatient (CLI) | payer OTHER, SELFPAY ==
[2022-01-08 12:32] LABS: TSH (W/Ref FT4) 0.85 uIU/mL (0.36-3.74); Vitamin B12 481 pg/mL (193-986)
== END 2022-01-08 03:28 | disposition home or self-care (01) ==
LOC: LBO 03:28
PROVIDERS: PCP Family Medicine; Visit Provider Family Medicine
DX: E03.9 Hypothyroidism, unspecified (principal); D64.9 Anemia, unspecified
CPT/HCPCS: 36415; 82607; 84443

== ENCOUNTER → 2022-02-01 00:57 | Outpatient (CLI) | payer OTHER, SELFPAY ==
--- NOTE | 2022-02-01 15:00 | DI.RAD_ITS ---
Exam(s) XR LUMBAR SPINE COMPLETE EXAM: XR LUMBAR SPINE COMPLETE CLINICAL HISTORY: low back and left leg pain,m54.9. TECHNIQUE: 2D digital imaging was performed. COMPARISON: No exams were available for comparison FINDINGS: Five views: No evidence of fracture or listhesis. Chronic disc space narrowing at L4-5 and L5-S1 levels calcium within the disc spaces at these 2 levels. Disc spaces above this exhibit normal height. Multilevel facet arthropathy noted. No scoliosis. There appears to be bone graft material on both sides of the L4-5 levels. SI joints appear unremarkable. IMPRESSION: DATA REPOSITORY: RADIATION DOSE DELIVERED:
== END ==
PROVIDERS: PCP Family Medicine; Visit Provider Family Medicine
DX: M48.07 Spinal stenosis, lumbosacral region (principal)
CPT/HCPCS: 72110

== ENCOUNTER 2022-03-07 03:43 | Outpatient (CLI) | payer OTHER, SELFPAY ==
[2022-03-07 09:41] LABS: Abs Immature Grans 0.01 10^3/uL (0.0-0.06); Absolute Basophil Count 0.04 10^3/uL (0.0-0.2); Absolute Lymphocyte Count 0.61 10^3/uL (1.2-3.4); Absolute Monocyte Count 0.26 10^3/uL (0.1-0.8); Absolute Neutrophil Count 1.51 10^3/uL (1.2-6.7); Basophils % 1.6; HCT 40.6 % (36.0-46.0); Immature Grans % 0.4; Lymphocytes % 24.1; MCH 30.5 pg (27.0-33.0); MCV 95 fL (80-95); Monocytes % 10.3; Neutrophils % 59.6; Platelet Count 157 10^3/uL (130-400); RBC 4.26 10^6/uL (3.93-5.22); RDW 12.6 % (11.7-14.6); RDW-SD 43.8 fL; WBC 2.53 10^3/uL (4.4-10.8)
[2022-03-07 09:58] LABS: ALT 32 U/L (14-59); AST 27 U/L (15-37); Albumin 3.8 g/dL (3.4-5.0); Alkaline Phosphatase 57 U/L (46-116); Anion Gap 7.5 mmol/L (3-11); BUN 17 mg/dL (7-18); Bilirubin, Total 0.4 mg/dL (0.2-1.0); CO2 30.5 mmol/L (21.0-32.0); CREATININE 0.8 mg/dL (0.55-1.02); Calcium 8.7 mg/dL (8.5-10.1); Chloride 108 mmol/L (98-107); Estimated GFR 76.31 (mL/min/1.73m2); Glucose 76 mg/dL (74-106); Potassium 3.8 mmol/L (3.5-5.1); Sodium 146 mmol/L (136-145); Total Protein 6.5 g/dL (6.4-8.2)
== END 2022-03-07 03:44 | disposition home or self-care (01) ==
PROVIDERS: PCP Family Medicine; Visit Provider Nurse Practitioner Adult Health
DX: C50.411 Malignant neoplasm of upper-outer quadrant of right female breast (principal); Z79.811 Long term (current) use of aromatase inhibitors
CPT/HCPCS: 36415; 80053; 85025

== ENCOUNTER → 2022-03-20 01:22 | Outpatient (CLI) | payer OTHER, SELFPAY ==
--- NOTE | 2022-03-20 08:00 | DI.MRI_ITS ---
Exam(s) MR LUMBAR SPINE WO EXAM: MR LUMBAR SPINE WO CLINICAL HISTORY: L radicular pain,LT LUMBAR RADICULOPATHY,LT LEG NUMBNESS,M54.17,R20.0. TECHNIQUE: Multiplanar multisequence MRI of the Lumbar spine was performed. COMPARISON: CR XR LUMBAR SPINE COMPLETE from 02/01/2022 FINDINGS: Bones: The last intervertebral disc space is designated the L5/S1 level for the numbering purpose of this examination. The vertebral body heights are well maintained. Alignment is satisfactory. The ma rrow signal characteristics are unremarkable. Cord: The conus tip ends at the T12 level. It is of normal size and signal intensity. T12-L1: No disc herniations or bulges are present. No central spinal canal or neural foraminal stenos is. L1-2: Mild disc bulging and mild facet degenerative changes. No central spinal canal or neural elvira inal stenosis. L2-3: Mild disc bulging. Mild facet degenerative changes. Mild bilateral neural foraminal narrowing . Minimal narrowing of the central canal. L3-4: Mild concentric disc bulging. Ligamentous hypertrophy and facet degenerative changes combine w ith disc bulging to produce moderate to severe central canal stenosis. There is also moderate bilate ral neural foraminal narrowing. L4-5: Bony posterior fusion. Partial fusion across the disc space. Loss of normal disc height. Dunaway inectomy defect. Central canal widely patent. Left neural foramen widely patent. Moderate right ne ural foraminal narrowing. L5-S1: Loss of disc height. Partial fusion across the disc. Laminectomy defect. Central canal wide ly patent. Mild right neural foraminal narrowing. The visualized SI joints are unremarkable. Nerve root sheath cysts are seen at sacral levels.. Soft tissues: Severe atrophy of the posterior paraspinal muscles at the level of the bony fusion at L 4 and L 5. numerous bilateral renal cysts and liver cysts are noted. IMPRESSION: No evidence of disc herniation. Prior posterior bony fusion at L4-5 and L5-S1. Moderate to severe central canal stenosis and neural foraminal narrowing at L3-4 secondary to combina tion of degenerative changes. DATA REPOSITORY:
== END ==
PROVIDERS: PCP Family Medicine; Visit Provider Psychiatry & Neurology Neurology
DX: M47.816 Spondylosis without myelopathy or radiculopathy, lumbar region (principal); R20.0 Anesthesia of skin
CPT/HCPCS: 72148

== ENCOUNTER 2022-08-08 03:13 | Outpatient (CLI) | payer OTHER, SELFPAY ==
--- NOTE | 2022-08-08 06:15 | DI.US_ITS ---
Exam(s) US ABDOMEN LIMITED EXAM: US ABDOMEN LIMITED CLINICAL HISTORY: reassess liver cysts,r10.9, abd pain TECHNIQUE: Ultrasound abdomen performed using standard protocol. COMPARISON: CT UPPER ABD WITH CONTRAST (P) from 12/27/2015 US ABDOMEN ULTRASOUND (P) from 11/28/2016 FINDINGS: PANCREAS: Normal where visualized. LIVER: There are multiple simple cysts again seen in the liver. The largest measures 4 x 4.9 x 5.3 c m. Hepatopedal flow in the Portal Vein. The liver measures in 15.9 cm length. GALLBLADDER:Status post cholecystectomy. BILIARY SYSTEM: Common bile duct measures < 7 mm. No intrahepatic biliary ductal dilation. RIGHT KIDNEY: Kidney is normal in size. No evidence of renal calculi. No evidence of hydronephrosis. There is a simple cyst measuring 4.8 x 5.6 x 4.0 cm. No follow-up is recommended. ASCITES: None seen. IMPRESSION: 1. Multiple stable simple hepatic cysts. 2. Simple right renal cyst. DATA REPOSITORY:
--- NOTE | 2022-08-08 06:15 | DI.US_ITS ---
Exam(s) US HERNIA EXAM: US HERNIA CLINICAL HISTORY: painful periumbilical swelling,r19.05. TECHNIQUE: Ultrasound was performed using standard protocol. COMPARISON: CT UPPER ABD WITH CONTRAST (P) from 12/27/2015 FINDINGS: Sonographic assessment utilizing grayscale and color Doppler imaging was performed and targeted to th e area of clinical concern. There is a question of a fat containing small hernia to the right of midline in the anterior abdomina l wall. The neck measures approximately 0.3 cm. IMPRESSION: Question of a small fat containing paraumbilical hernia. A CT scan of the abdomen may be useful for further characterization. DATA REPOSITORY:
== END 2022-08-08 03:33 ==
LOC: DI 03:14
PROVIDERS: PCP Family Medicine; Visit Provider Family Medicine
DX: R19.05 Periumbilic swelling, mass or lump (principal); R10.9 Unspecified abdominal pain
CPT/HCPCS: 76857; 76705

== ENCOUNTER 2022-08-28 00:47 | Outpatient (CLI) | payer OTHER, SELFPAY ==
--- NOTE | 2022-08-28 07:45 | DI.CT_ITS ---
Exam(s) CT ABDOMEN W EXAM: CT ABDOMEN W CLINICAL HISTORY: periumbilical hernia/swelling,f/u us,r19.05. TECHNIQUE: Imaging Protocol: Axial computed tomography images with coronal and sagittal reformatted images were created and reviewed CONTRAST MATERIAL: Intravenous: Omnipaque-350 100cc Oral: Yes. Oral contrast was administered for bowel opacification. COMPARISON: CT UPPER ABD WITH CONTRAST (P) from 12/27/2015 FINDINGS: VISUALIZED LUNG BASES: No nodules nor pleural effusions evident. The previously present moderate siz e right pleural effusion evident on CT scan of December 2015 has resolved. There presently no pleural effusions. ABDOMEN: There is no ascites. LIVER: There are again noted multiple large cysts in the right hepatic lobe and more moderate size cy st in left hepatic lobe. There is calcification associated with these right hepatic lobe cysts. The previously present large cysts in the most superior aspect of the right hepatic lobe which measures approximately 13 cm diameter has significantly decreased in size. Presently largest cyst in this con glomeration of cysts in the right hepatic lobe measures approximately 5 by 4 cm. Largest cyst in the left hepatic lobe measures 3.2 by 2.1 cm. GALLBLADDER/BILIARY: Not seen and presumed to be surgically absent. CBD is not dilated. PANCREAS: No evidence of pancreatic mass nor dilatation of the pancreatic duct. SPLEEN: Spleen is not enlarged. No obvious intrasplenic lesions. Splenic and portal veins are paten t. ADRENALS: No masses. KIDNEYS: Multiple cysts in both kidneys again noted. Largest in the right kidney measures 6 x 5 cm. L argest in the left kidney measures 5 x 5.7 cm. No solid renal masses evident. No calculi. No hydron ephrosis. No hydroureter. ABDOMINAL AORTA: Abdominal aorta is not enlarged. LYMPH NODES:There is no retroperitoneal nor paraaortic adenopathy. No adenopathy around the aortic b ifurcation nor along the common iliac arteries. ABDOMINAL WALL: No evidence of anterior abdominal wall hernia. GI: No evidence of small-bowel obstruction. Stomach is not distended. PELVIS: Not scanned but lower most images of this study reveal a unilocular appearing cystic structur e measuring 3 by 2.5 cm in the upper left pelvis. OSSEOUS: No fractures and no significant osseous lesions. Postsurgical changes in the lower lumbar spine again noted. IMPRESSION: 1. Compared to the prior CT scan of December 2015 the right pleural effusion has cleared. 2. Numerous cysts in the liver are again noted. The largest which was in the dome of the right hepat ic lobe is decreased in size. Some the cysts are again noted to contain calcifications. 3. Multiple benign cysts in both kidneys again noted. No solid renal masses. No hydronephrosis. 4. Pelvis was not scanned but lowermost images of the abdominal study reveals a 3 by 2.5 cm cyst in t he upper left pelvis. RADIATION DOSE DELIVERED: 462.5mGy.cm Total DLP DATA REPOSITORY: All CT scans at this facility are submitted to the National Radiology Data Registry (NRDR) Dose Index Registry (DIR) with the [employer] (ACR). RADIATION OPTIMIZATION: All CT scans at this facility use at least one of these dose optimization te chniques: automated exposure control; mA and/or kV adjustment per patient size (includes targeted exa ms where dose is matched to clinical indication); or iterative reconstruction.
[2022-08-28] MEDS: Barium Sulfate 2% W/V-Berry Smoothie 450 ML BTL PO (13:55)
[2022-08-28] MEDS: Omnipaque 350 MG/ML 500 ML BTL-Imaging package 100 ML IJ (15:09)
[2022-08-28] MEDS: Normal Saline - Diluent 50 ML VIAL IJ (15:09)
[2022-08-28] MEDS: Normal Saline Flush 10 ML SYR IVP (15:10)
== END 2022-08-28 01:07 ==
PROVIDERS: PCP Family Medicine; Visit Provider Family Medicine
DX: R19.05 Periumbilic swelling, mass or lump (principal); K76.89 Other specified diseases of liver; N28.1 Cyst of kidney, acquired; N94.89 Other specified conditions associated with female genital organs and menstrual cycle
CPT/HCPCS: 74160; 82565

== ENCOUNTER 2022-08-28 02:53 | Outpatient (CLI) | payer OTHER, SELFPAY ==
[2022-08-28 09:58] LABS: Abs Immature Grans 0.02 10^3/uL (0.0-0.06); Absolute Basophil Count 0.03 10^3/uL (0.0-0.2); Absolute Eosinophil Count 0.07 10^3/uL (0.0-0.7); Absolute Lymphocyte Count 0.76 10^3/uL (1.2-3.4); Absolute Monocyte Count 0.32 10^3/uL (0.1-0.8); Absolute Neutrophil Count 1.46 10^3/uL (1.2-6.7); Basophils % 1.1; Eosinophils % 2.6; HCT 42.1 % (36.0-46.0); HGB 13.5 g/dL (11.2-15.7); Immature Grans % 0.8; Lymphocytes % 28.6; MCH 30.1 pg (27.0-33.0); MCHC 32.1 % (32.0-36.0); MCV 94 fL (80-95); MPV 10.1 fL (8.0-11.0); Neutrophils % 54.9; Platelet Count 169 10^3/uL (130-400); RBC 4.48 10^6/uL (3.93-5.22); RDW 12.5 % (11.7-14.6); RDW-SD 43.5 fL; WBC 2.66 10^3/uL (4.4-10.8)
[2022-08-28 10:28] LABS: ALT 34 U/L (14-59); AST 26 U/L (15-37); Albumin 3.8 g/dL (3.4-5.0); Alkaline Phosphatase 58 U/L (46-116); Anion Gap 6.5 mmol/L (3-11); BUN 19 mg/dL (7-18); Bilirubin, Total 0.5 mg/dL (0.2-1.0); CO2 30.5 mmol/L (21.0-32.0); CREATININE 0.8 mg/dL (0.55-1.02); Calcium 8.8 mg/dL (8.5-10.1); Chloride 108 mmol/L (98-107); Estimated GFR 76.31 (mL/min/1.73m2); Glucose 91 mg/dL (74-106); Potassium 4.2 mmol/L (3.5-5.1); Sodium 145 mmol/L (136-145); Total Protein 6.5 g/dL (6.4-8.2)
[2022-08-28 10:38] LABS: TSH 1.12 uIU/mL (0.36-3.74)
== END 2022-08-28 02:54 | disposition home or self-care (01) ==
LOC: LBO 02:53
PROVIDERS: Student in an Organized Health Care Education/Training Program; PCP Family Medicine; Visit Provider Family Medicine
DX: C50.411 Malignant neoplasm of upper-outer quadrant of right female breast (principal); Z17.0 Estrogen receptor positive status [ER+]; E04.2 Nontoxic multinodular goiter
CPT/HCPCS: 36415; 80053; 84443; 85025

== ENCOUNTER 2023-01-06 04:33 | Outpatient (CLI) | payer OTHER, SELFPAY ==
[2023-01-06 12:21] LABS: CREATININE 0.7 mg/dL (0.55-1.02); Estimated GFR 89.02 (mL/min/1.73m2)
[2023-01-06 12:30] LABS: Calculated LDL 154 mg/dL (<100); Cholesterol 241 mg/dL (<200); HDL Cholesterol 76 mg/dL (40-60); Triglyceride 59 mg/dL (<150)
== END 2023-01-06 04:34 | disposition home or self-care (01) ==
LOC: LOS 04:33
PROVIDERS: Registered Nurse Maternal Newborn; PCP Family Medicine; Visit Provider Family Medicine
DX: E78.5 Hyperlipidemia, unspecified (principal); R51.9 Headache, unspecified; K58.9 Irritable bowel syndrome, unspecified; E04.2 Nontoxic multinodular goiter; Z01.812 Encounter for preprocedural laboratory examination
CPT/HCPCS: 36415; 80061; 82565

== ENCOUNTER → 2023-01-16 01:00 | Outpatient (CLI) | payer OTHER, SELFPAY ==
--- NOTE | 2023-01-16 08:30 | DI.MRI_ITS ---
Exam(s) MR IAC BRAIN WO/W EXAM: MR IAC BRAIN WO/W CLINICAL HISTORY: asymmetric hearing and and fullness, HEARING LOSS,. TECHNIQUE: Multiplanar multisequence MRI of the brain and internal auditory canals was performed. CONTRAST MATERIAL: IV Contrast: 12 mL of Dotarem contrast administered. COMPARISON: No exams were available for comparison FINDINGS: VENTRICLES AND EXTRA AXIAL SPACES: Normal in size and morphology for the patient's age. HEMORRHAGE: None. CEREBRAL PARENCHYMA: No focus of restricted diffusion to suggest acute infarct. No space-occupying le eliane identified. There are several foci of hyperintense signal in the white matter on the FLAIR and T 2 weighted images most consistent with small vessel ischemic disease. MIDLINE SHIFT: None. BRAINSTEM/CEREBELLUM: Normal. CALVARIUM: Normal. ENHANCEMENT: No suspicious enhancement identified. VISUALIZED PARANASAL SINUSES/MASTOIDS: Clear. RINCON OF [place]: Normal flow void. PITUITARY GLAND: Unremarkable. IAC/CP ANGLE: The internal auditory canals are within normal limits. The cerebellar pontine angles ar e unremarkable. No enhancing lesions are seen. Visualized portion of the facial nerves appear within normal limits. OTHER FINDINGS: None. IMPRESSION: 1. No evidence of an intracranial mass or enhancing lesion in the IAC or CP angles. 2. No evidence of an acute infarct. 3. Age-related cerebral atrophy and small vessel ischemic disease. DATA REPOSITORY:
[2023-01-16] MEDS: Gadoterate meglumine 20 ML VIAL IVP (13:18)
[2023-01-16] MEDS: Normal Saline Flush 10 ML SYR IVP (13:21)
== END ==
PROVIDERS: PCP Family Medicine; Visit Provider Registered Nurse Maternal Newborn
DX: I67.82 Cerebral ischemia; H90.3 Sensorineural hearing loss, bilateral
CPT/HCPCS: 70553

== ENCOUNTER 2023-03-04 17:32 | Outpatient (CLI) | payer OTHER, SELFPAY ==
[2023-03-04 12:46] LABS: Abs Immature Grans 0.01 10^3/uL (0.0-0.06); Absolute Basophil Count 0.03 10^3/uL (0.0-0.2); Absolute Eosinophil Count 0.08 10^3/uL (0.0-0.7); Absolute Lymphocyte Count 0.66 10^3/uL (1.2-3.4); Absolute Monocyte Count 0.32 10^3/uL (0.1-0.8); Absolute Neutrophil Count 1.86 10^3/uL (1.2-6.7); Eosinophils % 2.7; HCT 40.3 % (36.0-46.0); HGB 12.9 g/dL (11.2-15.7); Immature Grans % 0.3; Lymphocytes % 22.3; MCH 29.9 pg (27.0-33.0); MCV 93 fL (80-95); MPV 9.6 fL (8.0-11.0); Monocytes % 10.8; Neutrophils % 62.9; Platelet Count 164 10^3/uL (130-400); RBC 4.32 10^6/uL (3.93-5.22); RDW 12.7 % (11.7-14.6); RDW-SD 43.9 fL; WBC 2.96 10^3/uL (4.4-10.8)
[2023-03-04 13:02] LABS: ALT 34 U/L (14-59); AST 24 U/L (15-37); Albumin 3.6 g/dL (3.4-5.0); Alkaline Phosphatase 60 U/L (46-116); Anion Gap 5.6 mmol/L (3-11); BUN 17 mg/dL (7-18); Bilirubin, Total 0.3 mg/dL (0.2-1.0); CO2 29.4 mmol/L (21.0-32.0); CREATININE 0.8 mg/dL (0.55-1.02); Chloride 107 mmol/L (98-107); Estimated GFR 75.84 (mL/min/1.73m2); Glucose 84 mg/dL (74-106); Potassium 3.9 mmol/L (3.5-5.1); Sodium 142 mmol/L (136-145); Total Protein 6.2 g/dL (6.4-8.2)
== END 2023-03-04 17:33 | disposition home or self-care (01) ==
LOC: LBO 17:32
PROVIDERS: PCP Family Medicine; Visit Provider Nurse Practitioner Adult Health
DX: C50.411 Malignant neoplasm of upper-outer quadrant of right female breast (principal); Z17.0 Estrogen receptor positive status [ER+]; Z79.811 Long term (current) use of aromatase inhibitors
CPT/HCPCS: 36415; 80053; 85025

== ENCOUNTER → 2023-03-18 00:56 | Outpatient (CLI) | payer OTHER, SELFPAY ==
--- NOTE | 2023-03-18 07:00 | DI.RAD_ITS ---
Exam(s) XR FOOT LT COMPLETE EXAM: XR FOOT LT COMPLETE CLINICAL HISTORY: Lt foot pain, M79.672. TECHNIQUE: 2D digital imaging was performed of the left foot. Three images were obtained. AP, obli que and lateral views were obtained. COMPARISON: No exams were available for comparison FINDINGS: BONES: No acute fracture is present. No bony destructive lesion is seen. There is a hallux valgus def ormity. JOINTS: No dislocation present. Degenerative changes are seen in the foot characterized by joint spac e narrowing and osteophytes. The findings are most marked at the 1st MTP joint. There is a small os teophyte at the dorsal aspect of the head of the 1st metatarsal. SOFT TISSUE: Normal. IMPRESSION: Degenerative changes of the left foot and hallux valgus deformity. DATA REPOSITORY: RADIATION DOSE DELIVERED:
== END ==
PROVIDERS: PCP Family Medicine; Visit Provider Podiatrist
DX: M79.672 Pain in left foot (principal)
CPT/HCPCS: 73630

== ENCOUNTER 2023-04-16 03:14 | Outpatient (CLI) | payer OTHER, SELFPAY ==
[2023-04-16 15:04] LABS: Abs Immature Grans 0.01 10^3/uL (0.0-0.06); Absolute Basophil Count 0.02 10^3/uL (0.0-0.2); Absolute Eosinophil Count 0.08 10^3/uL (0.0-0.7); Absolute Lymphocyte Count 0.72 10^3/uL (1.2-3.4); Absolute Monocyte Count 0.34 10^3/uL (0.1-0.8); Basophils % 0.6; Eosinophils % 2.5; HGB 13.3 g/dL (11.2-15.7); Immature Grans % 0.3; Lymphocytes % 22.9; MCH 30.2 pg (27.0-33.0); MCHC 32.4 % (32.0-36.0); MCV 93 fL (80-95); Monocytes % 10.8; Neutrophils % 62.9; Platelet Count 182 10^3/uL (130-400); RBC 4.41 10^6/uL (3.93-5.22); RDW 12.9 % (11.7-14.6); RDW-SD 44.4 fL; WBC 3.14 10^3/uL (4.4-10.8)
[2023-04-16 15:08] LABS: Absolute Neutrophil Count 1.98 10^3/uL (1.2-6.7)
[2023-04-16 15:18] LABS: ALT 32 U/L (14-59); AST 25 U/L (15-37); Albumin 3.9 g/dL (3.4-5.0); Alkaline Phosphatase 56 U/L (46-116); Anion Gap 7.9 mmol/L (3-11); BUN 20 mg/dL (7-18); Bilirubin, Total 0.3 mg/dL (0.2-1.0); CO2 30.1 mmol/L (21.0-32.0); CREATININE 0.8 mg/dL (0.55-1.02); Calcium 9.4 mg/dL (8.5-10.1); Chloride 106 mmol/L (98-107); Estimated GFR 75.84 (mL/min/1.73m2); Glucose 96 mg/dL (74-106); Sodium 144 mmol/L (136-145); Total Protein 6.6 g/dL (6.4-8.2)
[2023-04-16 15:39] LABS: C-Reactive Protein 0.06 mg/dL (0.0-0.3)
== END 2023-04-16 03:15 | disposition home or self-care (01) ==
LOC: LBO 03:14
PROVIDERS: PCP Family Medicine; Visit Provider Internal Medicine Rheumatology
DX: M06.041 Rheumatoid arthritis without rheumatoid factor, right hand (principal); Z79.899 Other long term (current) drug therapy
CPT/HCPCS: 36415; 80053; 85025; 86140

== ENCOUNTER 2023-06-25 02:47 | Outpatient (CLI) | payer OTHER, SELFPAY ==
[2023-06-25 13:02] LABS: Abs Immature Grans 0.01 10^3/uL (0.0-0.06); Absolute Basophil Count 0.03 10^3/uL (0.0-0.2); Absolute Eosinophil Count 0.05 10^3/uL (0.0-0.7); Absolute Lymphocyte Count 0.63 10^3/uL (1.2-3.4); Absolute Monocyte Count 0.28 10^3/uL (0.1-0.8); Absolute Neutrophil Count 1.62 10^3/uL (1.2-6.7); Basophils % 1.1; Eosinophils % 1.9; HCT 39.4 % (36.0-46.0); HGB 13.1 g/dL (11.2-15.7); Immature Grans % 0.4; MCH 30.9 pg (27.0-33.0); MCHC 33.2 % (32.0-36.0); MCV 93 fL (80-95); MPV 10.6 fL (8.0-11.0); Monocytes % 10.7; Neutrophils % 61.9; Platelet Count 149 10^3/uL (130-400); RBC 4.24 10^6/uL (3.93-5.22); RDW 12.8 % (11.7-14.6); RDW-SD 43.8 fL; WBC 2.62 10^3/uL (4.4-10.8)
[2023-06-25 13:38] LABS: ALT 33 U/L (14-59); AST 21 U/L (15-37); Albumin 3.7 g/dL (3.4-5.0); Alkaline Phosphatase 51 U/L (46-116); Anion Gap 7.7 mmol/L (3-11); BUN 19 mg/dL (7-18); Bilirubin, Total 0.3 mg/dL (0.2-1.0); CO2 30.3 mmol/L (21.0-32.0); CREATININE 0.8 mg/dL (0.55-1.02); Calcium 9.1 mg/dL (8.5-10.1); Chloride 108 mmol/L (98-107); Estimated GFR 75.84 (mL/min/1.73m2); Glucose 96 mg/dL (74-106); Potassium 4.1 mmol/L (3.5-5.1); Sodium 146 mmol/L (136-145); Total Protein 6.3 g/dL (6.4-8.2)
== END 2023-06-25 02:48 | disposition home or self-care (01) ==
PROVIDERS: PCP Family Medicine; Referring Provider Nurse Practitioner; Visit Provider Nurse Practitioner
DX: Z79.899 Other long term (current) drug therapy (principal); M06.041 Rheumatoid arthritis without rheumatoid factor, right hand; M06.042 Rheumatoid arthritis without rheumatoid factor, left hand
CPT/HCPCS: 36415; 80053; 85025

== ENCOUNTER 2023-08-19 04:49 | Outpatient (CLI) | payer OTHER, SELFPAY ==
[2023-08-19 08:35] LABS: Abs Immature Grans 0.02 10^3/uL (0.0-0.06); Absolute Basophil Count 0.03 10^3/uL (0.0-0.2); Absolute Eosinophil Count 0.13 10^3/uL (0.0-0.7); Absolute Lymphocyte Count 0.61 10^3/uL (1.2-3.4); Absolute Monocyte Count 0.33 10^3/uL (0.1-0.8); Absolute Neutrophil Count 1.69 10^3/uL (1.2-6.7); Basophils % 1.1; Eosinophils % 4.6; HCT 42.5 % (36.0-46.0); HGB 13.6 g/dL (11.2-15.7); Immature Grans % 0.7; Lymphocytes % 21.7; MCH 30.6 pg (27.0-33.0); MCV 96 fL (80-95); MPV 9.7 fL (8.0-11.0); Monocytes % 11.7; Neutrophils % 60.2; Platelet Count 170 10^3/uL (130-400); RBC 4.45 10^6/uL (3.93-5.22); RDW 12.5 % (11.7-14.6); RDW-SD 44.5 fL; WBC 2.81 10^3/uL (4.4-10.8)
== END 2023-08-19 04:50 | disposition home or self-care (01) ==
PROVIDERS: PCP Family Medicine; Visit Provider Nurse Practitioner
DX: C50.411 Malignant neoplasm of upper-outer quadrant of right female breast (principal); Z17.0 Estrogen receptor positive status [ER+]
CPT/HCPCS: 36415; 85025

== ENCOUNTER 2023-09-03 14:56 | Outpatient (CLI) | payer OTHER, SELFPAY ==
--- NOTE | 2023-09-03 06:00 | DI.RAD_ITS ---
Exam(s) XR PAIN CLINIC LUMBAR SP 2V EXAM: XR PAIN CLINIC LUMBAR SP 2V CLINICAL HISTORY: Dx: Lumbar Radiculopathy. TECHNIQUE: Fluoroscopy was provided for the referring physician for guidance with performing pain cl inic injection procedure. COMPARISON: No exams were available for comparison FINDINGS: Please see procedure note for details. Fluoro time: 48.4 seconds RADIATION DOSE DELIVERED: Ka,r=9.64 mGy
[2023-09-03 15:07] VITALS: BP 122/65; PULSE 83; RESP 20; TEMP 36.6; O2SAT 97
--- NOTE | 2023-09-03 15:51 | PDOC.PAIN ---
Date of service: 09/03/23 Time of Service: 15:51 Pain Managment Procedure Note Procedure Note Procedure Note: LUMBAR / SACRAL TRANSFORAMINAL INJECTION Dx: Lumbar radiculopathy Pre-operative VAS: 7/10 Kelly Liu has been referred to the [facility] for a transforaminal nerve root block and steroid injection. COMMENTS: I previously evaluated her in the office. She has had multiple lumbar spine surgeries with a large amount of scar tissue. I had initially planned to complete a left L4 transforaminal ELAINE, but encountered bone grafting at every area of the left L4 foramina. For this reason I decided to change the procedure to a left L3 transforaminal ELAINE and I did get approval from the patient prior to initiating this change. Patient was interviewed and the medical record reviewed. There were no medical, pharmacologic, radiographic or other structural contraindications to attempting fluoroscopically guided transforaminal nerve root block and epidural steroid injection. Risks and expected side effects as well as potential benefit of the procedure were reviewed and voiced concerns addressed. The printed consent form was signed and witnessed. Standard time-out procedure was performed. Patient was placed in the prone position on the fluoroscopy table and automated blood pressure cuff and pulse oximeter applied. Fluoroscopy was utilized to identify the left L3 neural foramen between L3 and L4. A skin alfredo was made for the needle insertion site. A Chlorhexadine prep was carried out, and sterile drapes were applied. Local anesthesia was achieved in the skin and subcutaneous tissues. A 22 gauge curved tip spinal needle was then inserted, advanced with fluoroscopic guidance into the neural foramen, confirmed on the lateral view. After negative aspiration, 2 ml of Omnipaque 240 was injected confirming position in A/P and lateral views. This showed a good spread of dye transforaminally into the epidural space. There was no vascular update with contrast injection under continuous fluoroscopy and digital substraction. 15 mg of Dexamethasone was injected, followed by 0.5 ml of 1% Xylocaine flush for the nerve root block, as well. There was no unusual discomfort expressed.The needle was withdrawn. The patient tolerated the procedure well. A Band-Aid was applied. Vital signs were stable throughout the procedure and were as recorded in nursing records. If given, dosages of intravenous drugs for anxiolysis and analgesia were documented in nursing records. Follow up plans and appointments were discussed. Post procedure instruction was given as documented in nursing records and patient was discharged in the care of an identified courtesy car driver. COMMENTS: She did very well with this procedure. Post-procedure VAS was 0/10 Joe Alfredo DO, [facility] CC: Kenan Willett MD
[2023-09-03 15:52] VITALS: BP 98/64; PULSE 90; RESP 20; O2SAT 96
[2023-09-03] MEDS: Nerve Block Tray 1 EACH MC (15:53)
[2023-09-03] MEDS: Lidocaine 1% Pres-Free 30 ML VIAL IJ (15:53)
[2023-09-03] MEDS: Dexamethasone Sod. Phos./Pres-Free 10 MG/ML VIAL IJ (15:54)
[2023-09-03] MEDS: Omnipaque 240 MG/ML 50 ML BTL IJ (15:54)
== END 2023-09-03 14:57 | disposition home or self-care (01) ==
LOC: PC 14:56
PROVIDERS: PCP Family Medicine; Visit Provider Preventive Medicine Occupational Medicine
DX: M54.16 Radiculopathy, lumbar region (principal)
CPT/HCPCS: 64483; 72100; J1100; Q9967

== ENCOUNTER → 2023-10-08 06:10 | Outpatient (CLI) | payer OTHER, SELFPAY ==
--- NOTE | 2023-10-08 06:45 | DI.RAD_ITS ---
Exam(s) XR KNEE RT 3V AP,LAT,ARASH EXAM: XR KNEE RT 3V AP,LAT,ARASH CLINICAL HISTORY: knee pain, right,m25.561. TECHNIQUE: 2D digital imaging was performed. COMPARISON: No exams were available for comparison FINDINGS: Four views. There is no evidence of fracture or obvious joint effusion. There is mild-moderate narrowing of the medial compartment. Marginal osteophyte is seen off the outer aspect of the medial tibial plateau. Lateral compartment exhibits normal height. Few calcifications are noted along the lateral aspect of the knee. Not posterior and after to be a fabella. There are no osteochondral defects. IMPRESSION: Some degenerative changes in the medial compartment, as described above. Calcific bodies noted laterally. No obvious joint effusion seen. DATA REPOSITORY: RADIATION DOSE DELIVERED:
== END ==
PROVIDERS: PCP Family Medicine; Visit Provider Family Medicine
DX: M25.561 Pain in right knee (principal)
CPT/HCPCS: 73562

== ENCOUNTER 2023-11-18 10:30 | Outpatient (CLI) | payer OTHER, SELFPAY ==
[2023-11-18 13:18] LABS: Vitamin B12 494 pg/mL (193-986)
== END 2023-11-18 10:31 | disposition home or self-care (01) ==
LOC: LOS 10:30
PROVIDERS: PCP Family Medicine; Referring Provider Family Medicine; Visit Provider Family Medicine
DX: D64.9 Anemia, unspecified (principal)
CPT/HCPCS: 36415; 82607

== ENCOUNTER 2024-01-08 03:43 | Outpatient (CLI) | payer OTHER, SELFPAY ==
[2024-01-08 13:43] LABS: Calculated LDL 111 mg/dL (<100); Cholesterol 201 mg/dL (<200); HDL Cholesterol 72 mg/dL (40-60); Triglyceride 93 mg/dL (<150)
[2024-01-09 13:44] LABS: Albumin 70.3 % (55.8-66.1); Albumin g/dL 4.2 g/dL (3.6-5.2)
== END 2024-01-08 03:44 | disposition home or self-care (01) ==
LOC: LBO 03:44
PROVIDERS: Psychiatry & Neurology Neurology; PCP Family Medicine; Visit Provider Family Medicine
DX: E78.5 Hyperlipidemia, unspecified (principal); G62.9 Polyneuropathy, unspecified
CPT/HCPCS: 36415; 80061; 84165

== ENCOUNTER 2024-03-12 00:26 | Outpatient (CLI) | payer OTHER, SELFPAY ==
--- NOTE | 2024-03-12 06:45 | DI.MRI_ITS ---
Exam(s) MR CERVICAL SPINE WO EXAM: MR CERVICAL SPINE WO CLINICAL HISTORY: gait imablance; ?myelopathy,falls,r29.6 TECHNIQUE: Multiplanar multisequence MRI of the cervical spine was performed without intravenous con trast. COMPARISON: No exams were available for comparison FINDINGS: CERVICOMEDULLARY JUNCTION: Intact with no evidence of cerebellar tonsillar ectopia. No obvious abnor mality of the odontoid process. No evidence of Chiari 1 malformation. CERVICAL SPINAL CORD: There is no abnormal signal in the cervical spinal cord and no evidence of foca l cord atrophy nor focal cord swelling. OSSEOUS:There are no cervical fractures evident. No significant osseous lesions in the cervical vert ebrae. INDIVIDUAL LEVELS: C2-3: No disc herniation or central canal stenosis. Moderate facet joint degenerative changes are no radha bilaterally but no foraminal stenosis on either side. C3-4: Relatively preserved disc height and signal.There is significant facet arthropathy, left more t garcia right. Mild foraminal stenosis on the left side. No foraminal stenosis on the right side. C4-5: Normal disc height and signal. No disc herniation nor central canal stenosis. There is fusion across the left facet joints probably developmental. Right facet joints unremarkable. No central c anal stenosis. No foraminal stenosis on either side. C5-6: Moderate decreased disc height. There is relatively symmetrical annular bulging with slightly indents the anterior thecal sac but not the spinal cord. Central canal dimensions are lower normal. Mild degenerative changes in the facet joints. There is some foraminal stenosis on the left side as the annular bulging extends into the exiting left neural foramen. On the right side there is some a nnular bulging also evident into the proximal aspect of the exiting neural foramen. New no obvious a ctual foraminal stenosis on the right side at this level. C6-7: This level exhibits chronic disc space narrowing and anterior osseous lipping. Posteriorly the re is a significant disc protrusion centrally and bilateral paracentral. This extends posteriorly 4 mm and is approximately 13 mm wide. It extends inferiorly behind the mid aspect of C7 vertebral body for a distance of 4 mm. This significantly flattens the anterior thecal sac and indents the anterio r spinal cord. There does not appear to be abnormal signal in the spinal cord at this level. Facet joints appear unremarkable bilaterally at this level. The disc herniation does not extend into the exiting neural foramina and there does not appear to be significant foraminal stenosis on either side at this level. C7-T1: No significant findings at this level IMPRESSION: 1. Most significant findings are at the C6-7 level where there is a prominent central/bilateral parac entral disc herniation extending posteriorly 4 millimeters and 13 mm wide, significantly indenting th e thecal sac and spinal cord. Actual osseous canal dimensions are lower normal at this level. The d isc protrusion does not extend into the bilateral exiting neural foramina and there is no significant foraminal stenosis at this level. Facet joints appear relatively unremarkable at this level without significant degenerative changes. 2. Findings at C5-6 as described above. 3. Incidentally noted is fusion across the left side facet joints at C4-5 level, probably on a develo pmental basis. DATA REPOSITORY:
== END 2024-03-12 00:46 ==
LOC: DI 00:27
PROVIDERS: PCP Family Medicine; Visit Provider Psychiatry & Neurology Neurology
DX: R29.6 Repeated falls (principal); M50.123 Cervical disc disorder at C6-C7 level with radiculopathy
CPT/HCPCS: 72141

== ENCOUNTER 2024-04-05 00:52 | Outpatient (CLI) | payer OTHER, SELFPAY ==
--- NOTE | 2024-04-05 06:45 | DI.MRI_ITS ---
Exam(s) MR LOWER EXTREMITY LT WO EXAM: MR LOWER EXTREMITY LT WO CLINICAL HISTORY: [place] neuroma vs bursa LESION,g57.62 TECHNIQUE: Multiplanar multisequence MRI was performed without intravenous contrast. COMPARISON: No exams were available for comparison FINDINGS: SKIN: No evidence of ulcer nor subcutaneous tract. No foreign body artifact evident. BONES/JOINTS: No evidence of fracture nor bone contusion. No prominent/dominant joint effusion evide nt. There is no evidence of para-articular ganglion. There is significant hallux valgus at the great toe. Also significant osteoarthritic degenerative change in this articulation. Small effusion evid ent in the 3rd metatarsophalangeal joint. No degenerative changes nor avascular necrosis. There is no evidence of intermetatarsal Israel's neuroma. There is a small amount of fluid in the in termetatarsal bursa between the heads of the 3rd and 4th metatarsals. SINUS TARSI appears unremarkable. Normal appearing inter osseous ligament and fat within this space. There is no evidence of sinus tarsi ganglion cyst. LISFRANC JOINT: Intact LIGAMENTS: No obvious tears evident. MUSCULOTENDINOUS STRUCTURES: There is mild tenosynovitis of the peroneus tendons on the lateral aspec t of the foot. No obvious tears of these tendons evident. Achilles tendon unremarkable SOFT TISSUES: No abnormal collections nor evidence of obvious foreign body. OTHER FINDINGS: None. IMPRESSION: 1. Mild fluid noted between the heads of the 3rd and 4th metatarsals consistent with mild intermetata rsal bursitis. 2. No evidence of intermetatarsal Israel's neuroma 3. Hallux valgus and significant osteoarthritic degenerative changes in the great toe metatarsophalan geal joint. 4. Tenosynovitis of the peroneus longus and brevis tendons at and distal to the lateral malleolus le iglesia. No obvious tears of these nor other tendons. DATA REPOSITORY:
== END 2024-04-05 01:12 ==
LOC: DI 00:52
PROVIDERS: PCP Family Medicine; Visit Provider Podiatrist
DX: G57.62 Lesion of plantar nerve, left lower limb (principal)
CPT/HCPCS: 73718

== ENCOUNTER 2024-06-10 13:19 | Outpatient (CLI) | payer OTHER, SELFPAY ==
--- NOTE | 2024-06-10 | DI.RAD_ITS ---
Exam(s) XR CHEST 2V PA LATERAL EXAM: XR CHEST 2V PA LATERAL CLINICAL HISTORY: COUGH R05.9 X 10 DAYS. TECHNIQUE: 2D digital imaging was performed. COMPARISON: No exams were available for comparison FINDINGS: 2 views: Heart size is normal. The mediastinum is not widened. Right lung is clear. There is platelike atelectasis in the left lung base. No abnormal lung nodules evident. No pleural effusions Surgical clips are again noted the right breast and right axilla. IMPRESSION: Platelike atelectasis in left lung base.Evidence of previous right breast surgery and right axillary malu dissection. DATA REPOSITORY: RADIATION DOSE DELIVERED:
== END 2024-06-10 13:39 ==
LOC: DI 13:21
PROVIDERS: PCP Family Medicine; Visit Provider Nurse Practitioner Family
DX: R05.9 Cough, unspecified (principal)
CPT/HCPCS: 71046

== ENCOUNTER 2024-07-19 11:45 | Outpatient (CLI) | payer OTHER, SELFPAY ==
[2024-07-19] MEDS: Gadoterate meglumine 20 ML VIAL IVP (13:23)
[2024-07-19] MEDS: Normal Saline Flush 10 ML SYR IVP (13:24)
--- NOTE | 2024-07-19 13:58 | DI.MRI_ITS ---
Exam(s) MR BRAIN WO/W EXAM: MR BRAIN WO/W CLINICAL HISTORY: double vision,H53.2. TECHNIQUE: Multiplanar multisequence MRI of the brain was performed. CONTRAST MATERIAL: IV Contrast: 12 ML of Dotarem contrast administered. COMPARISON: MR MR IAC BRAIN WO/W from 01/16/2023 FINDINGS: VENTRICLES AND EXTRA AXIAL SPACES: Normal in size and morphology for the patient's age. HEMORRHAGE: None. CEREBRAL PARENCHYMA: No focus of restricted diffusion to suggest acute infarct. No space-occupying le eliane identified. There are few scattered tiny foci of high signal white matter consistent with seque la of chronic microvascular disease. BRAINSTEM/CEREBELLUM: Normal. CALVARIUM: Normal. ENHANCEMENT: No suspicious enhancement identified. VISUALIZED PARANASAL SINUSES/MASTOIDS: Clear. Orbits: Unremarkable. Pituitary: Not enlarged. Vasculature: Normal flow voids. IMPRESSION: Unremarkable MRI of the brain. DATA REPOSITORY:
== END 2024-07-19 12:05 ==
PROVIDERS: PCP Family Medicine; Visit Provider Family Medicine
DX: H53.2 Diplopia (principal)
CPT/HCPCS: 70553

== ENCOUNTER 2024-08-25 01:57 | Outpatient (CLI) | payer OTHER, SELFPAY ==
[2024-08-25 14:54] LABS: Abs Immature Grans 0.01 10^3/uL (0.0-0.06); Absolute Basophil Count 0.03 10^3/uL (0.0-0.2); Absolute Eosinophil Count 0.09 10^3/uL (0.0-0.7); Absolute Lymphocyte Count 0.74 10^3/uL (1.2-3.4); Absolute Monocyte Count 0.37 10^3/uL (0.1-0.8); Absolute Neutrophil Count 2.35 10^3/uL (1.2-6.7); Basophils % 0.8 %; Eosinophils % 2.5 %; HCT 41.9 % (36.0-46.0); HGB 13.1 g/dL (11.2-15.7); Immature Grans % 0.3 %; Lymphocytes % 20.6 %; MCH 29.8 pg (27.0-33.0); MCHC 31.3 % (32.0-36.0); MCV 95 fL (80-95); MPV 9.9 fL (8.0-11.0); Monocytes % 10.3 %; Neutrophils % 65.5 %; Platelet Count 162 10^3/uL (130-400); RBC 4.39 10^6/uL (3.93-5.22); RDW 12.8 % (11.7-14.6); RDW-SD 45.6 fL; WBC 3.59 10^3/uL (4.4-10.8)
[2024-08-25 15:35] LABS: ALT 34 U/L (14-59); AST 26 U/L (15-37); Albumin 3.8 g/dL (3.4-5.0); Alkaline Phosphatase 71 U/L (46-116); Anion Gap 6.3 mmol/L (3-11); BUN 19 mg/dL (7-18); Bilirubin, Total 0.3 mg/dL (0.2-1.0); CO2 30.7 mmol/L (21.0-32.0); CREATININE 0.9 mg/dL (0.55-1.02); Chloride 108 mmol/L (98-107); Estimated GFR 65.44 (mL/min/1.73m2); Glucose 78 mg/dL (74-106); Potassium 4.1 mmol/L (3.5-5.1); Sodium 145 mmol/L (136-145); Total Protein 6.4 g/dL (6.4-8.2)
== END 2024-08-25 01:58 | disposition home or self-care (01) ==
LOC: LBO 01:57
PROVIDERS: PCP Family Medicine; Visit Provider Internal Medicine
DX: C50.411 Malignant neoplasm of upper-outer quadrant of right female breast (principal); Z17.0 Estrogen receptor positive status [ER+]
CPT/HCPCS: 36415; 80053; 85025

== ENCOUNTER 2024-12-16 14:11 | Outpatient (CLI) | payer OTHER, SELFPAY ==
--- NOTE | 2024-12-16 06:00 | DI.RAD_ITS ---
Exam(s) XR PAIN CLINIC LUMBAR SP 2V EXAM: XR PAIN CLINIC LUMBAR SP 2V CLINICAL HISTORY: DX: Lumbar Radiculopathy. TECHNIQUE: Fluoroscopy was provided for the referring physician for guidance with performing pain clinic injection procedure. COMPARISON: No exams were available for comparison FINDINGS: Please see procedure note for details. Fluoro time: 43.5 seconds RADIATION DOSE DELIVERED: Ka,r=6.7 mGy
[2024-12-16 14:25] VITALS: BP 133/73; PULSE 67; RESP 18; TEMP 36.1; O2SAT 97
[2024-12-16 14:52] VITALS: PULSE 61; PULSE 67; RESP 16; O2SAT 95
[2024-12-16 14:53] VITALS: BP 161/79; PULSE 58; PULSE 64; RESP 14
[2024-12-16 15:00] VITALS: PULSE 75; RESP 11; O2SAT 97
[2024-12-16 15:01] VITALS: BP 165/118; PULSE 71; PULSE 72; RESP 15; O2SAT 97
[2024-12-16 15:07] VITALS: BP 114/77; PULSE 57
[2024-12-16] MEDS: Omnipaque 240 MG/ML 50 ML BTL IJ (15:10)
[2024-12-16] MEDS: Dexamethasone Sod. Phos./Pres-Free 10 MG/ML VIAL IJ (15:10)
[2024-12-16] MEDS: Nerve Block Tray 1 EACH MC (15:10)
--- NOTE | 2024-12-16 15:40 | PDOC.PAIN_ITS ---
Date of service: 12/16/24 Time of Service: 15:00 Pain Managment Procedure Note Procedure Note Procedure Note: PROCEDURE NOTE LEFT L3 TRANSFORAMINAL EPIDURAL STEROID INJECTION Chief Complaint: LEFT leg pain. Date of Service: December 16, 2024 Patient: Kelly Liu Provider: Joe Alfredo DO, MPH Kelly Liu has been referred to the [facility] for a transforaminal epidural steroid injection. Pre-operative diagnosis: Lumbosacral Radiculopathy ICD-10 M54.17 Post-operative diagnosis: Same Pre-Procedure Pain: VAS= 7/10 Comments: I previously evaluated the patient in our clinic and their symptoms remain the same as they were at that time. She had this procedure 03/04/2024 and had >6 months of >50% pain relief. Kelly was interviewed and the medical record reviewed. There were no medical, pharmacologic, radiographic or other structural contraindications to attempting a fluoroscopically-guided transforaminal lumbar epidural steroid injection. The risks, benefits, and potential side effects were reviewed with the patient. Risks include, but are not limited to, [id number] headache, infection, bleeding, nerve injury, spinal cord damage, allergic reaction, possible increase in symptoms over the ensuing 24 to 48 hours, paralysis, and . The patient appeared to understand, questions were answered to the patient?s satisfaction and the patient agreed to proceed. Once I obtained informed verbal consent, the printed consent form was signed by the patient and myself. A standard time-out procedure was performed. Kelly was placed in the prone position on the fluoroscopy table and automated blood pressure cuff, three lead EKG, and pulse oximeter were applied. The skin entry point for entering/approaching the left L3 space for the transforaminal epidural steroid injection was marked. Following thorough chlorhexadine preparation of the skin and draping, 2 ml of 1% lidocaine was infiltrated into the skin over the entry point and subcutaneous tissues. Under fluoroscopic guidance, in ipsilateral oblique view, a co-axial approach using a 3.5 22G spinal needle was advanced to the base of the left L3 pedicle. The needle was advanced to the superio-posterior aspect of the neural foramen under lateral view. Oblique and AP views were rechecked. Under AP and lateral views, 1 ml of Omnipaque-240 was injected while visualized with fluoroscopy. There was no evidence of intravascular or intrathecal uptake, the epidural space was delineated. Next 1.5 ml of preservative-free Dexamethasone (10 mg/ml) was injected after negative aspiration. This was followed by 1 ml of preservative- free 1% lidocaine. (49 mls of Omnipaque-240 was wasted) There was no unusual discomfort expressed by Kelly. The needle was withdrawn without difficulty. Kelly was observed and was without hemodynamic, neurologic, or allergic reactions.? Fluoroscopic images were digitally archived. Kelly's vital signs were stable throughout the procedure and were as recorded in the docflowsheet by the nursing staff.? If given, dosages of intravenous drugs for anxiolysis and analgesia were documented in MAR. Follow up plans and appointments were discussed with Kelly. Post procedure instruction was given as documented in nursing records and having met discharge criteria Kelly was discharged from the [facility]. COMMENTS: Post-procedure pain: VAS= 0/10. Kelly to contact [facility] as needed. If at least 50% improvement in pain and/or function for at least 3 months is achieved, this procedure can be repeated. I personally performed this entire procedure. JOE ALFREDO DO, MPH ABPMR-subspecialty board certification in Pain Medicine [facility] Coding Conscious Sedation used for procedure: No CPT Codes: Transforaminal Lumbar/Sacral (includes fluoro) - 54865 ([id number] ~G) Additional Codes: Date of Service (29763) Date of service: 12/16/24 Diagnoses: Lumbar radiculopathy
== END 2024-12-16 14:12 | disposition home or self-care (01) ==
LOC: PC 14:12
PROVIDERS: PCP Family Medicine; Visit Provider Preventive Medicine Occupational Medicine
DX: M54.17 Radiculopathy, lumbosacral region (principal)
CPT/HCPCS: 64483; 72100; J1100; Q9967

== ENCOUNTER 2025-01-31 00:26 | Outpatient (CLI) | payer OTHER, SELFPAY ==
--- NOTE | 2025-01-31 05:00 | DI.MRI_ITS ---
Exam(s) MR LUMBAR SPINE WO EXAM: MR LUMBAR SPINE WO CLINICAL HISTORY: Continued left lumbar radiculopathy,m54.17. TECHNIQUE: Multiplanar multisequence MRI of the Lumbar spine was performed. COMPARISON: MR MR LUMBAR SPINE WO from 03/20/2022 FINDINGS: Bones: The last intervertebral disc space is designated the L5/S1 level for the numbering purpose of this examination. The vertebral body heights are well maintained. There are postsurgical changes of partial fusion of the L4-5 and L5- S1 disc spaces. There are perineural root sleeve cysts in the sacrum involving the 2nd segment. There are endplate osteophytes at multiple levels of the lumbar spine. Cord: It is of normal size and signal intensity. T12-L1: No disc herniations or bulges are present. No central spinal canal or neural foraminal stenosis. L1-2: There is a mild diffuse disc bulge and facet arthropathy. No central spinal canal or neural foraminal stenosis. L2-3: There is a mild diffuse disc bulge. There are degenerative changes of the facets and mild ligamentum flavum hypertrophy. There is mild narrowing of the central spinal canal and mild narrowing of the neural foramen bilaterally. L3-4: There is a mild diffuse disc bulge. There are degenerative changes of the facets and hypertrophy of the ligamentum flavum. These all contribute to cause moderate central spinal canal stenosis. There is [id number] bilateral neural foraminal stenosis. L4-5: No disc herniations or bulges are present. There is no significant central spinal canal stenosis. There is mild narrowing of the right neural foramen. There is no significant left neural foraminal stenosis. L5-S1: No disc herniations or bulges are present. No significant central spinal canal stenosis is seen. There is no significant neural foraminal stenosis. Soft tissues: The visualized SI joints and sacrum are well maintained. There is atrophy of the paraspinal muscles seen in the lower lumbar spine and around the sacrum. Visualized abdominal organs: There is atrophy of the paraspinal muscles. There are numerous bilateral renal cysts which appear simple. No follow-up is recommended. IMPRESSION: 1. Multilevel degenerative changes in the lumbar spine. The findings are most marked at L2-3 and L3-L4 where there is central spinal canal and neural foraminal stenosis. 2. Postsurgical changes seen at L4-5 and L5-S1. DATA REPOSITORY:
== END 2025-01-31 00:46 ==
PROVIDERS: PCP Family Medicine; Visit Provider Preventive Medicine Occupational Medicine
DX: M54.17 Radiculopathy, lumbosacral region (principal); M51.362 Other intervertebral disc degeneration, lumbar region with discogenic back pain and lower extremity pain
CPT/HCPCS: 72148

== ENCOUNTER 2025-03-10 04:01 | Outpatient (CLI) | payer OTHER, SELFPAY ==
--- NOTE | 2025-03-10 07:30 | DI.RAD_ITS ---
Exam(s) XR SHOULDER LT COMPLETE 2+V EXAM: XR SHOULDER LT COMPLETE 2+V CLINICAL HISTORY: left shoulder pain,M25.512. TECHNIQUE: 2D digital imaging was performed of the left shoulder. Six images were obtained. AP, Grashey, Y-view and axillary views were obtained. COMPARISON: CR XR shoulder LT complete 2+V from 01/20/2019 FINDINGS: BONES: No acute fracture is present. No bony destructive lesion is seen. The bones are osteopenic. JOINTS: No dislocation present. There are mild degenerative changes seen at the acromioclavicular and glenohumeral joints. SOFT TISSUE: Normal. IMPRESSION: Mild degenerative changes of the left shoulder. DATA REPOSITORY: RADIATION DOSE DELIVERED:
== END 2025-03-10 04:21 ==
LOC: DI 04:01
PROVIDERS: PCP Family Medicine; Visit Provider Family Medicine
DX: M25.512 Pain in left shoulder (principal); M19.012 Primary osteoarthritis, left shoulder
CPT/HCPCS: 73030

== ENCOUNTER 2025-04-20 01:28 | Outpatient (CLI) | payer OTHER, SELFPAY ==
[2025-04-20 16:05] LABS: Cholesterol 210 mg/dL (<200); HDL Cholesterol 68 mg/dL (>40)
== END 2025-04-20 01:29 | disposition home or self-care (01) ==
LOC: LOS 01:28
PROVIDERS: PCP Family Medicine; Visit Provider Family Medicine
DX: Z13.220 Encounter for screening for lipoid disorders (principal)
CPT/HCPCS: 36415; 80061

== ENCOUNTER → 2025-05-10 00:19 | Outpatient (CLI) | payer OTHER, SELFPAY ==
--- NOTE | 2025-05-10 06:15 | DI.MRI_ITS ---
Exam(s) MR LOWER JOINT LT WO EXAM: MR LOWER JOINT LT WO CLINICAL HISTORY: pain in left hip,m25.552 TECHNIQUE: Multiplanar multisequence MRI of the hip was performed. COMPARISON: No exams were available for comparison FINDINGS: MARROW:There is no evidence of fracture, bone contusion, nor avascular necrosis. There are no significant osseous lesions. HIP JOINT SPACE: Only mild degenerative changes. Some articular cartilage thinning is noted. There are no osteophytes. No degenerative subarticular cysts noted.There is no hypertrophy of the ligamentum teres nor signal abnormality at the fovea centralis. LABRUM: There is some tearing of the anterosuperior labrum. There is no obvious degenerative paralabral cyst. BURSAE: There is no evidence of trochanteric bursitis. There is no evidence of iliopsoas bursitis. TENDONS: Mild increased signal related to the gluteus medius lateral to greater trochanter probably element of mild tendinitis. ISCHIAL TUBEROSITY/HAMSTRING: Some increased signal is noted in the common hamstrings attachment at the ischial tuberosity.. No high-grade tear. OTHER: There is no abnormal intramuscular signal within the quadratus femoris to suggest the presence of impingement syndrome at this level. IMPRESSION: 1. No evidence of fracture nor avascular necrosis. 2. Mild degenerative changes in the hip 3. Labral tear evident in the anterosuperior labrum. DATA REPOSITORY:
== END ==
LOC: DI 00:19
PROVIDERS: PCP Family Medicine; Visit Provider Family Medicine
DX: M25.552 Pain in left hip (principal); M16.12 Unilateral primary osteoarthritis, left hip
CPT/HCPCS: 73721